=== PATIENT | male | born 1955 | race Caucasian/White ===

== ENCOUNTER 2017-05-23 17:17 | Emergency (ER) | payer BC, OTHER ==
[2017-05-23] MEDS ORDERED: HYDROcodone/Acetaminophen 10/325 mg Tablet ONE (18:08)
[2017-05-23] MEDS ORDERED: Lidocaine 1% w/Epinephrine 1:200K 30 ML VIAL ONE (18:08)
[2017-05-23] MEDS ORDERED: Bacitracin Zinc 1 Packet ONE (19:31)
== END 2017-05-23 19:35 | disposition home or self-care (01) ==
LOC: ERS 17:17
DX: S01.511A Laceration without foreign body of lip, initial encounter (principal); K21.9 Gastro-esophageal reflux disease without esophagitis; I10 Essential (primary) hypertension; Z79.899 Other long term (current) drug therapy; W55.22XA Struck by cow, initial encounter
CPT/HCPCS: 12031

== ENCOUNTER 2017-12-15 17:31 | Observation (INO) | payer OTHER ==
[2017-12-15 18:01] LABS: #Eosinphils 0.1 thou/uL (0.0-0.7); #Lymphocytes 1.8 thou/uL (1.20-3.40); #Monocytes 0.9 thou/uL (0.11-0.59); #Neutrophils 9.3 thou/uL (1.40-6.50); %Basophils 0.1 % (0.0-1.0); %Eosinophils 0.6 % (0.0-10.0); %Lymphocytes 14.6 % (21.0-51.0); %Monocytes 7.1 % (0.0-10.0); %Neutrophils 77.6 % (42.0-75.0); Hemoglobin 14.5 g/dL (14.0-18.0); Mean Corpuscular Hemoglobin 29.9 pg (27.0-31.0); Mean Corpuscular Volume 87.8 fl (80.0-94.0); Mean Platelet Volume 7.9 fL (7.4-10.4); Platelet Count 193 thou/uL (130-400); RBC Distribution Width 12.4 % (11.5-14.5); Red Blood Cell (RBC) Count 4.85 mill/uL (4.70-6.10)
[2017-12-15 18:05] LABS: Bilirubin Negative (Negative); Blood, Urine Trace (Negative); Clarity CLEAR (Clear); Glucose, Urine (Dipstick) Negative (Negative); Leukocyte Negative (Negative); Nitrite Negative (Negative); Protein, Urine (Dipstick) Negative (Neg-Trace); Specific Gravity, Urine 1.009 (1.002-1.036)
[2017-12-15 18:06] LABS: Bacteria/HPF None Seen HPF (None Seen); Hyaline Casts/LPF 0-3 HYALINE CAST LPF (0-3 Hyaline); RBC/HPF 0-3 HPF (0-3); Squamous Epithelial None Seen HPF (0-3); WBC/HPF None Seen HPF (0-3)
[2017-12-15 18:25] LABS: ALT (SGPT) 24 U/L (8-55); AST (SGOT) 19 U/L (5-34); Albumin 4.5 g/dL (3.4-4.8); Alkaline Phosphatase 84 U/L (40-150); Bilirubin, Direct 0.5 mg/dL (0.1-0.3); Bilirubin, Total 1.2 mg/dL (0.2-1.2); Lipase 19 U/L (8-78); Protein, Total 7.7 g/dL (5.8-8.1)
[2017-12-15 18:27] LABS: CKMB 1.8 ng/mL (0-6.6); Troponin I Less than 0.010 ng/mL (< 0.028)
--- NOTE | 2017-12-15 19:08 | ULT ---
GALLBLADDER ULTRASOUND: 12/15/17 HISTORY: Right upper quadrant pain. COMPARISON: None. TECHNIQUE: Utilizing multihertz transducer, sonographic imaging of the right upper quadrant is performed in the longitudinal and transverse plain. FINDINGS: Increased echogenicity of the liver may be due to hepatic steatosis or hepatocellular disease. Subseq uent evaluation for hepatic masses and intrahepatic biliary dilatation is limited. Right hepatic lobe measures 15.8 cm. The pancreas is obscured by bowel gas. Main portal vein is patent. Appropriate directional flow. Suboptimal evaluation of the common bile duct. No sonographic evidence of cholelithiasis, gallbladder wall thickening, or pericholecystic fluid. How ever, heavy threader reports a positive Delgado's sign. RIGHT KIDNEY: There is renal cortical thinning. No hydronephrosis. Right kidney measures 6.7 x 11.1 x 6.6 cm. IMPRESSION: 1. No definite sonographic evidence of cholelithiasis or cholecystitis. However, heavy threader pickett s report a positive Delgado's sign. HIDA scan is recommended. 2. Increased echogenicity of the liver is defined above. 3. Right renal cortical thinning. POS: [facility]
[2017-12-15] MEDS ORDERED: Morphine 4 MG/ML VIAL ONE ×2 (20:00→20:52)
[2017-12-15] MEDS ORDERED: Sodium Chloride 0.9% 1,000 ML IV SCH (22:36)
[2017-12-15] MEDS ORDERED: HYDROcodone/Acetaminophen 5/325 mg Tablet PO PRN ×2 (22:37)
[2017-12-15 23:35] VITALS: BMI 34.8
[2017-12-16] MEDS ORDERED: Ketorolac Tromethamine 30 MG/ML VIAL IVP PRN (00:34)
[2017-12-16] MEDS ORDERED: Morphine 4 MG/ML VIAL SLOW IVP SCH (00:45)
[2017-12-16] MEDS ORDERED: Acetaminophen 325 MG TAB PO PRN (05:00)
[2017-12-16] MEDS ORDERED: HYDROcodone/Acetaminophen 5/325 mg Tablet PO PRN ×4 (05:00)
[2017-12-16] MEDS ORDERED: Ondansetron ODT 4 MG TAB PO PRN (05:00)
[2017-12-16] MEDS ORDERED: hydrALAZINE 20 MG/ML VIAL SLOW IVP PRN (05:00)
[2017-12-16] MEDS ORDERED: Mag-Al 1200 mg/1200 mg/30 ML UDCUP PO PRN (05:00)
[2017-12-16] MEDS ORDERED: Ondansetron HCl/PF 4 MG/2 ML Vial IVP PRN (05:00)
[2017-12-16] MEDS ORDERED: Enalaprilat Dihydrate 1.25 MG/ML VIAL SLOW IVP PRN (05:02)
[2017-12-16] MEDS ORDERED: Sodium Chloride 0.9% 1,000 ML IV SCH (05:15)
--- NOTE | 2017-12-16 05:19 | HP ---
PRIMARY CARE PHYSICIAN: Dr. Jose Antonio Moseley. CHIEF COMPLAINT: Abdominal pain. HISTORY OF PRESENT ILLNESS: Mr. Garcia is a pleasant 62-year-old gentleman that has a history of hy pertension and gastroesophageal reflux disease. He was in his usual state of health until about 3 da ys prior to admission. 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 He says that the pain was constant and c ontinuous, and he describes it as a dull pain. He cannot relate it to any particular activity as far as making it better or worse. He says it does not seem to be different with activity. It does not seem to be different with eating. He denies having any nausea or vomiting. No diarrhea. He does ad carlos alberto to some low-grade temperature and as a result of the pain, he came to the ER for evaluation. An abdominal ultrasound was done in the ER, which was essentially negative for cholelithiasis; however, there was a positive Delgado sign and he was placed in observation to rule out acalculous cholecystiti s. I also asked the patient with regard to urinary symptoms. He denies any hematuria, no dysuria, a nd no discoloration of the urine such as tea-colored urine or blood in the urine, etc. REVIEW OF SYSTEMS: Constitutional: He has had subjective fever and chills in the last few days. No night sweats, no weight loss. HEENT: He denies any headaches, no dizziness, no visual changes, no sore throat, rhinorrhea, neck pain, no adenopathy. Pulmonary: No hemoptysis, no cough, no wheezing. Cardiovascular: He denies any chest pain, no shortness of breath, no PND, no orthopnea. Gastroint estinal: As stated in the history of present illness. Genitourinary: No urinary frequency, hematur ia, no hesitancy. Musculoskeletal: No muscle pains, weakness, or joint pains. Neurologic: No foca l weakness, numbness, no seizures. Psychiatric: No symptoms of anxiety or depression. Skin and Int egument: No skin changes. No rash. PAST MEDICAL HISTORY: Significant for hypertension and gastroesophageal reflux disease. PAST SURGICAL HISTORY: He has had LASIK surgery, sinus surgery, appendectomy, and cataracts surgery. SOCIAL HISTORY: He is a nonsmoker. He drinks a beer every now and then. He says he is , has 3 children. ALLERGIES: No known drug allergies. FAMILY HISTORY: Significant for congestive heart failure in his father. Mother had diabetes. MEDICATIONS: Include Flomax 0.4 mg daily, Flonase nasal spray, Zyrtec 10 mg daily, aspirin 81 mg a d ay, Protonix 40 mg every other day, and lisinopril 10 mg daily. PHYSICAL EXAMINATION: GENERAL: He is alert and oriented. He appears to be in no acute distress. VITAL SIGNS: Blood pressure was 111/67, heart rate 74, respiratory rate is 16, temperature is 97.9. HEENT: Pupils are equal, round, and reactive. Extraocular muscles are intact. His sclerae anicteri c. Throat, no erythema, no exudates. NECK: No adenopathy, no bruits. LUNGS: Clear to auscultation. There is no wheezing or rales. CARDIOVASCULAR: He has a normal S1, S2. There is no S3 or S4. No murmurs, clicks, or rubs. ABDOMEN: Obese, it is soft. There is some mild right upper quadrant tenderness. There is no reboun d or guarding, no organomegaly. EXTREMITIES: No clubbing, cyanosis, no edema. NEUROLOGICALLY: Exam is nonfocal. Muscle strength is 5/5 in both his upper and lower extremities. SIGNIFICANT LABORATORY DATA: Urinalysis, there was trace blood. His white blood cell count was 12.0 , hemoglobin 14.5, hematocrit is 42.6, platelet count is 193. Lipase was 19. ASSESSMENT AND PLAN: This is a 62-year-old gentleman that presents with abdominal and flank pain on the right side. Acalculous cholecystitis is in the differential, as he does have an elevated white b lood cell count and the location of the pain would fit. Also, he could have a kidney stone, which wo uld cause similar symptoms or even a muscle strain or radiculopathy in that area as well. He will be placed in observation. We will obtain a HIDA scan and also a KUB in the event that a radiopaque sto ne is present. Place him on IV fluids as well as antiemetics and pain medication and reevaluate him after the results of the HIDA scan are available. Hypertension since he will be n.p.o., we will place him on p.r.n. Vasotec and/or hydralazine until wh ich time his regular medications can be restarted.
[2017-12-16 08:37] VITALS: BP 110/70; TEMP 97.4
[2017-12-16] MEDS ORDERED: Enoxaparin Sodium 40 MG/0.4 ML SYRINGE SC SCH (09:00)
--- NOTE | 2017-12-16 13:20 | NM ---
NUCLEAR MEDICINE HEPATOBILIARY SCAN: 12/16/2017 PROVIDED CLINICAL HISTORY: Right upper quadrant pain. RADIOPHARMACEUTICAL: Technetium 99m labeled mebrofenin 5.1 millicuries IV. FINDINGS: There is normal hepatic extraction of radiotracer with accumulation of radiotracer seen within the ga llbladder in a normal amount of time. There is nonspecific delayed opacification of bowel. Subseque nt to the administration of CCK analog, there is diminished excretion of radiotracer from the gallbla dder. Calculated gallbladder ejection fraction is 31%. IMPRESSION: 1. No evidence for cystic duct or complete common duct obstruction. 2. Nonspecific delayed biliary to bowel transit. 3. Diminished gallbladder ejection fraction. Correlate for biliary dyskinetic syndrome. POS: OFF
--- NOTE | 2017-12-16 13:27 | RAD ---
KUB: 12/16/2017 PROVIDED CLINICAL HISTORY: Right flank pain. FINDINGS: The abdominal bowel gas pattern is nonspecific. There is contrast material present within the colon. No radiographically apparent urinary tract calculi. Phleboliths or prostate calcifications overly the pelvis. The osseous structures demonstrate no concerning lytic or blastic lesions. IMPRESSION: Nonspecific bowel gas pattern. POS: OFF
[2017-12-16] MEDS ORDERED: Fioricet 325/50/40 mg Tablet PO PRN (14:28)
[2017-12-16 14:55] LABS: ALT (SGPT) 20 U/L (8-55); AST (SGOT) 16 U/L (5-34); Albumin 3.9 g/dL (3.4-4.8); Alkaline Phosphatase 69 U/L (40-150); Anion Gap 9 mmol/L (10-20); BUN (Urea Nitrogen) 12 mg/dL (8.4-25.7); Calc. Creatinine Clearance 143 mL/min (70-130); Calcium 9.3 mg/dL (7.8-10.44); Carbon Dioxide 29 mmol/L (23-31); Chloride 105 mmol/L (98-107); Estimated GFR-MDRD Greater than 90; Glucose 103 mg/dL (80-115); Potassium 3.8 mmol/L (3.5-5.1); Protein, Total 6.9 g/dL (5.8-8.1); Sodium 139 mmol/L (136-145)
[2017-12-16 15:06] LABS: Band 3 % (5-11); Hemoglobin 13.3 g/dL (14.0-18.0); Lymphocytes 11 % (21-51); MDiff Complete? YES; Mean Corpuscular HGB CONC 33.8 g/dL (32.0-36.0); Mean Corpuscular Hemoglobin 30.3 pg (27.0-31.0); Mean Corpuscular Volume 89.6 fl (80.0-94.0); Monocytes 6 % (0-10); Neutrophil 80 % (42-75); PLT Morphology Comment Appears Adequate; Platelet Count 171 thou/uL (130-400); RBC Distribution Width 12.3 % (11.5-14.5); Red Blood Cell (RBC) Count 4.38 mill/uL (4.70-6.10); White Blood Cell (WBC) Count 6.8 thou/uL (4.8-10.8)
--- NOTE | 2017-12-16 22:06 | DIS ---
DATE OF ADMISSION: 12/16/2017 DATE OF DISCHARGE: 12/16/2017 DISCHARGE DIAGNOSES: 1. Right upper quadrant pain. 2. Headaches. 3. History of benign prostatic hypertrophy. HOSPITAL COURSE: The patient is a really nice 62-year-old male, who presents to the hospital with co mplaints of abdominal and flank pain on the right side. The patient initially underwent a right uppe r quadrant ultrasound, which did not indicate any cholelithiasis or cholecystitis. The patient then underwent a HIDA scan, which indicated no evidence of cystic duct or complete common duct obstruction , nonspecific delay in the biliary or bowel transit, demonstrated gallbladder ejection fraction of 31 %, henceforth a normal HIDA scan. The patient also had an abdominal x-ray for possible any renal francesco culi; however, no evidence of apparent urinary tract calculi was noted. The patient's right upper qu adrant pain has continued to improve. We will discharge the patient home. Follow up with PCP as an outpatient. Also, his lipase was normal and LFTs were normal. The patient will be fed a regular t and will be discharged home. Follow up with primary care. PHYSICAL EXAMINATION: VITAL SIGNS: Temperature 98.6, pulse 80, respiratory rate 20, blood pressure 111/67, and O2 saturati on 96% on room air. GENERAL: He is awake, alert, oriented x3, does not appear in distress. CARDIOVASCULAR: S1, S2 present. No murmurs, rubs or gallops. ABDOMEN: Soft, nontender. Bowel sounds are present x2. No epigastric pain. No hepatomegaly or spl enomegaly noted. EXTREMITIES: No edema.
== END 2017-12-16 15:53 | disposition home or self-care (01) ==
LOC: ERS 17:31 → 2SW 21:30
PROVIDERS: ADMIT Internal Medicine; ATTEND Internal Medicine
DX: R10.11 Right upper quadrant pain (principal); R51 Headache; N40.0 Benign prostatic hyperplasia without lower urinary tract symptoms; I10 Essential (primary) hypertension; K21.9 Gastro-esophageal reflux disease without esophagitis; Z79.82 Long term (current) use of aspirin; Z79.899 Other long term (current) drug therapy; Z98.890 Other specified postprocedural states
CPT/HCPCS: 36415; 74018; 76705; 78227; 80053; 80076; 81003; 81015; 82553; 83690; 84484; 85007; 85025; 85027; 96361; 96374; 96376; A9537; G0378; J2270

== ENCOUNTER 2018-07-30 09:46 | Outpatient (CLI) | payer OTHER ==
[2018-07-30 11:15] LABS: #Eosinphils 0.2 thou/uL (0.0-0.7); #Lymphocytes 2.1 thou/uL (1.20-3.40); #Monocytes 0.5 thou/uL (0.11-0.59); #Neutrophils 2.9 thou/uL (1.40-6.50); %Basophils 0.8 % (0.0-1.0); %Eosinophils 4.3 % (0.0-10.0); %Lymphocytes 35.8 % (21.0-51.0); %Monocytes 7.9 % (0.0-10.0); %Neutrophils 51.1 % (42.0-75.0); Hemoglobin 14.9 g/dL (14.0-18.0); Mean Corpuscular HGB CONC 34.2 g/dL (32.0-36.0); Mean Corpuscular Hemoglobin 30.4 pg (27.0-31.0); Mean Platelet Volume 8.5 fL (7.4-10.4); Platelet Count 204 thou/uL (130-400); White Blood Cell (WBC) Count 5.7 thou/uL (4.8-10.8)
[2018-07-30 11:35] LABS: ALT (SGPT) 45 U/L (8-55); AST (SGOT) 27 U/L (5-34); Albumin 4.1 g/dL (3.4-4.8); Alkaline Phosphatase 77 U/L (40-150); Anion Gap 10 mmol/L (10-20); BUN (Urea Nitrogen) 14 mg/dL (8.4-25.7); Bilirubin, Direct 0.4 mg/dL (0.1-0.3); Calc. Creatinine Clearance 0 mL/min (70-130); Calcium 9.5 mg/dL (7.8-10.44); Carbon Dioxide 27 mmol/L (23-31); Chloride 109 mmol/L (98-107); Estimated GFR-MDRD 86; Glucose 91 mg/dL (80-115); Potassium 4.4 mmol/L (3.5-5.1); Protein, Total 7.1 g/dL (5.8-8.1); Sodium 142 mmol/L (136-145)
--- NOTE | 2018-07-30 19:04 | EKG ---
Test Reason : Blood Pressure : / mmHG Vent. Rate : 055 BPM Atrial Rate : 055 BPM P-R Int : 158 ms QRS Dur : 136 ms QT Int : 428 ms P-R-T Axes : 025 059 032 degrees QTc Int : 409 ms Sinus bradycardia Right bundle branch block Abnormal ECG Confirmed by Ayla ARREAGA ([id number]) on 07/30/2018 7:03:42 PM Referred By: PRATIK Confirmed By:Ayla ARREAGA
== END 2018-07-30 09:47 | disposition home or self-care (01) ==
LOC: LABBT 09:46
PROVIDERS: ATTEND Surgery
DX: Z01.818 Encounter for other preprocedural examination (principal); K82.8 Other specified diseases of gallbladder
CPT/HCPCS: 80048; 80076; 85025; 93005; 93010

== ENCOUNTER 2018-08-02 11:49 | Day surgery (SDC) | payer OTHER ==
[2018-07-30 10:19] VITALS: BMI 36.1
[2018-08-02] MEDS ORDERED: CEFAZOLIN 2 GM/50 ML BAG ONE (12:07)
[2018-08-02] MEDS ORDERED: Midazolam HCl 2 mg/2 ml Vial ONE (13:03)
[2018-08-02] MEDS ORDERED: Fentanyl 100 MCG/2 ML VIAL ONE ×3 (13:03→15:22)
[2018-08-02] MEDS ORDERED: Rocuronium Bromide 50 MG/5 ML VIAL ONE (13:09)
[2018-08-02] MEDS ORDERED: Bupivacaine/Epinephrine 0.25% 30 ML VIAL ONE (14:34)
--- NOTE | 2018-08-02 16:32 | OP ---
DATE OF PROCEDURE: 08/02/2018 PREOPERATIVE DIAGNOSIS: Chronic biliary dyskinesia. POSTOPERATIVE DIAGNOSIS: Chronic biliary dyskinesia. PROCEDURE: Laparoscopic cholecystectomy. ANESTHESIA: General. ESTIMATED BLOOD LOSS: Minimal. COMPLICATIONS: None. SPECIMEN: Gallbladder. FINDINGS: Chronic cholecystitis. TECHNIQUE: The patient was taken to the operating room and laid supine on the operating room table. After general anesthetic was obtained, the abdomen was prepped and draped in a sterile fashion. A curved incision was made below the umbilicus. Cautery was used to dissect down to the umbilical fascia. Umbilical fascia was incised and held up using a Zuleyka. The abdominal cavity was entered using a Zenaida clamp. Holding stitch of Vicryl was placed on each side of the fascia. Villeda trocar was placed. High-flow pneumoperitoneum was obtained. An upper midline 5 mm port and 2 right upper quadrant 5 mm ports were placed under direct camera visualization. The gallbladder was retracted from the gallbladder fossa. The peritoneum of the gallbladder was opened anteriorly and posteriorly. The critical view triangle was seen showing only the cystic duct and cystic artery branching from medial to lateral. There were no other branching structures. Two clips were placed proximally on the cystic duct and one laterally. It was cut using laparoscopic scissors. The cystic artery was taken in the same way. Electrocautery was then used to dissect the gallbladder out of the gallbladder fossa. The gallbladder was placed in an Endo catch bag and brought out through the Villeda. There was no bleeding or bile in the liver bed. The cystic duct stump and cystic artery stump were intact, without evidence of extravasation or bleeding. All port sites were infiltrated using local anesthesia. All ports were removed under camera visualization. Pneumoperitoneum was let down. The Vicryl was used to close the fascial defect below the umbilicus. All incisions were irrigated and closed using 4-0 Monocryl and Dermabond. The patient was en route to Recovery in stable condition. All instrument counts, needle counts and lap counts were correct. Job ID: [id number]
[2018-08-02] MEDS ORDERED: HYDROcodone/Acetaminophen 5/325 mg Tablet ONE (17:14)
== END 2018-08-02 17:45 | disposition home or self-care (01) ==
LOC: SDC 11:49
PROVIDERS: ATTEND Surgery
PROC: 0FT44ZZ Resection of Gallbladder, Percutaneous Endoscopic Approach (ICD-10-PCS; principal; 2018-08-02)
DX: K81.1 Chronic cholecystitis (principal); K82.8 Other specified diseases of gallbladder
CPT/HCPCS: 88304; 96374; J2250; J3010

== ENCOUNTER 2019-01-14 03:21 | Inpatient (IN) | payer OTHER ==
[2019-01-14 03:52] LABS: #Eosinphils 0.2 thou/uL (0.0-0.7); #Lymphocytes 1.7 thou/uL (1.20-3.40); #Monocytes 0.6 thou/uL (0.11-0.59); #Neutrophils 5.1 thou/uL (1.40-6.50); %Basophils 0.4 % (0.0-1.0); %Lymphocytes 21.9 % (21.0-51.0); %Monocytes 7.9 % (0.0-10.0); %Neutrophils 66.8 % (42.0-75.0); Hemoglobin 13.3 g/dL (14.0-18.0); Mean Corpuscular HGB CONC 33.1 g/dL (32.0-36.0); Mean Corpuscular Hemoglobin 29.7 pg (27.0-31.0); Mean Corpuscular Volume 89.8 fL (78.0-98.0); Mean Platelet Volume 8.4 fL (7.4-10.4); Platelet Count 160 thou/uL (130-400); RBC Distribution Width 12.2 % (11.5-14.5); Red Blood Cell (RBC) Count 4.47 mill/uL (4.70-6.10); White Blood Cell (WBC) Count 7.7 thou/uL (4.8-10.8)
[2019-01-14 03:59] LABS: INR-International Normal Ratio 1.1; PTT 28.8 SEC (22.9-36.1); Prothrombin Time 13.8 SEC (12.0-14.7)
[2019-01-14 04:19] LABS: ALT (SGPT) 30 U/L (8-55); AST (SGOT) 20 U/L (5-34); Albumin 3.5 g/dL (3.4-4.8); Alkaline Phosphatase 73 U/L (40-150); Anion Gap 10 mmol/L (10-20); BUN (Urea Nitrogen) 13 mg/dL (8.4-25.7); Bilirubin, Total 0.8 mg/dL (0.2-1.2); CK (CPK) 115 U/L (30-200); Calc. Creatinine Clearance 0 mL/min (70-130); Calcium 8.5 mg/dL (7.8-10.44); Carbon Dioxide 22 mmol/L (23-31); Chloride 108 mmol/L (98-107); Estimated GFR-MDRD 83; Globulin 2.2 g/dL (2.4-3.5); Glucose 97 mg/dL (80-115); Protein, Total 5.7 g/dL (5.8-8.1); Sodium 136 mmol/L (136-145)
[2019-01-14 05:28] VITALS: BMI 34.6
[2019-01-14] MEDS ORDERED: Communication Order-Pharmacy FS ONE (05:44)
[2019-01-14] MEDS ORDERED: Ondansetron PF 4 MG/2 ML Vial IVP PRN (05:44)
[2019-01-14] MEDS ORDERED: Labetalol HCl 100 MG/20 ML VIAL SLOW IVP PRN (05:44)
[2019-01-14] MEDS ORDERED: Ondansetron ODT 4 MG TAB PO PRN (05:44)
[2019-01-14] MEDS ORDERED: Acetaminophen 650 MG Suppository PR PRN (05:44)
--- NOTE | 2019-01-14 08:16 | HP ---
PRIMARY CARE DOCTOR: Selena Ferro MD CODE STATUS: Full code. TIME OF EVALUATION: 5:40 a.m. CHIEF COMPLAINT: Unable to speak and right-sided weakness. HISTORY OF PRESENT ILLNESS: This is a 63-year-old male patient with past medical history of GERD, hypertension, came to the hospital. 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 The patient was transported to the hospital and when he got here, he was diagnosed to have CVA that was acute. The symptoms were severe given the fact that the patient was unable to speak and he was given tPA. The patient has recovered. He has been able to speak in . The right upper arm was regaining strength, symptoms were severe. No clear triggers. The only thing that improved the symptoms was tPA. REVIEW OF SYSTEMS: Unable to fully get the informations since the patient is hypoxic, but the family has reported that the patient has not had any major symptoms in the past few days before the stroke. He has no fever, chills, or cough. No sputum production. No nausea, no vomiting, no diarrhea. 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 PAST MEDICAL HISTORY: As mentioned in the HPI. PAST SURGICAL HISTORY: Bilateral shoulder surgery, appendectomy. PSYCHIATRIC HISTORY: No previous psych history. SOCIAL HISTORY: The patient drinks socially twice a month. No drugs. No smoking history. FAMILY HISTORY: Positive for mother with diabetes and the father with congestive heart failure. ALLERGIES: NO KNOWN DRUG ALLERGIES. REPORTED MEDICATIONS: 1. Zyrtec. 2. Aspirin. 3. Pantoprazole. 4. Atorvastatin. 5. Tamsulosin. 6. Metoprolol. 7. Fluticasone. PHYSICAL EXAMINATION: VITAL SIGNS: On presentation, blood pressure 130/102 with heart rate 56, respiratory rate 16, oxygen saturation 97%. GENERAL APPEARANCE: The patient is alert, oriented, in no acute distress. HEENT: Eyes, normal conjunctivae. Moist oral mucosa. Anicteric. No JVD. RESPIRATORY: Bilateral air entry. No rales. No wheezes. Symmetric expansion. CARDIOVASCULAR: Normal rate, regular rhythm. No murmurs. No gallop. No edema. ABDOMEN: Soft. Normal bowel sounds. MUSCULOSKELETAL: Baseline range of motion and strength. No tenderness. SKIN: Warm and intact. No pallor. No rash. No redness. Peripheral pulses are present. Capillary refill seems to be intact. NEUROLOGIC: The patient has aphasia that has resolved after tPA as per family members. He is able to speak slowly, able to read, name objects. The right upper extremity is still weak; however, stronger as reported by family members. He was unable to move the right upper extremity. PSYCH: The patient is in good mood. No anxiety. Optimal judgment. DIAGNOSTIC STUDIES: EKG was reviewed. The patient has normal sinus rhythm with right bundle-branch block, ventricular rate 66, IL 164, QRS duration 132, QT corrected 448. Radiology report was reviewed. CT head without contrast showed no evidence of acute large vessel infarction or hemorrhage. CT angio with contrast showed no acute finding. No significant ICA stenosis, dissection, or occlusion. LABORATORY DATA: Labs were reviewed. The patient has white count of 7.7, hemoglobin 13.3, MCV 89.8, platelet count 160. PT 13.8 with INR 1.1, PTT 28.8. Chemistry, sodium 136, potassium 4.0, chloride 108, carbon dioxide 22, anion gap 10, BUN 13, creatinine 0.92, and GFR 83. LFTs were negative. Troponin was negative. Serum total protein 5.7, albumin 3.5, globulin 3.2, albumin-globulin ratio 1.6. ASSESSMENT AND PLAN: The patient will be placed in the hospital with the following medical problems. 1. Acute stroke, ischemic, status post cerebrovascular accident. The patient has recovered from symptoms. He presented with aphasia and right upper extremity weakness, we will continue to monitor as per protocol for the next 24 hours. We will do stroke protocol with MRI, echo, carotid Doppler, monitor blood pressure. We will need speech evaluation and therapy. 2. Controlled hypertension. The patient is on protocol. We will control the blood pressure per target per the protocol. 3. Deep venous thrombosis prophylaxis. He received tPA. Continue with the SCDs. ICU time spent, more than 35 minutes with the patient in bedside evaluation, family counseling, review of records. Job ID: [id number]
--- NOTE | 2019-01-14 08:50 | CT ---
Final report by Dr. Mauricio Emergency after-hours study CT ANGIOGRAM OF BRAIN WITH CONTRAST: CT ANGIOGRAM NECK WITH CONTRAST: DATE: 01/14/2019 HISTORY: 63-year-old male status post stroke TECHNIQUE: After IV contrast injection, arterial bolus chasing technique scan performed from aortopulmonic windo w to vertex of skull Coronal and sagittal 3-D MIP reconstructions. FINDINGS: No calcified plaque, and no high-grade stenosis, in major arteries of neck and intracranially. Agree with preliminary report by [facility]. IMPRESSION: Negative
--- NOTE | 2019-01-14 09:17 | CT ---
PRELIMINARY REPORT/[facility]/EMERGENCY AFTER HOURS PROCEDURE: Addendum created by Iam Naylor MD on 01/14/2019 3:34 AM Central Time ([place]) THIS REPORT CONTAINS FINDINGS THAT MAY BE CRITICAL TO PATIENT CARE. The findings were verbally communicated via t elephone conference with ISSAC Matthews at 3:34 AM CDT on 01/14/2019. The findings were acknowledg ed and understood. Initial Report created on 01/14/2019 3:33 AM Central Time ([place]) EXAM: CT Head Without Contrast EXAM DATE/TIME: 01/14/2019 3:25 AM CLINICAL HISTORY: 63 years old, male; Signs and symptoms; Speech disturbance; Patient HX: Lsn: 0145, unable to speak, d ecreased movement to all 4 limbs. Found walking up and down a hallway at work. Weakness in upper limb s at this time. Drooping on right side. Alert and oriented, just unable to speak. Denies pain. TECHNIQUE: Imaging protocol: Axial computed tomography images of the head without contrast. Other technique: STR GAYLE PROTOCOL was implemented. COMPARISON: No relevant prior studies available. FINDINGS: Limitations: Motion artifact limits this study. Brain: No evidence of acute large vessel infarction. No evidence of acute intracranial hemorrhage, ex traxial fluid or midline shift. Mild prominence of the cerebral sulci and ventricles. Cerebellum atro phic; otherwise, posterior fossa structures within normal limits. Ventricles: Normal. No ventriculomegaly. Bones/joints: Unremarkable. No acute fracture. Sinuses: Visualized sinuses are unremarkable. No fluid levels. Mastoid air cells: Visualized mastoid air cells are well aerated. No mastoid effusion. Soft tissues: Unremarkable. IMPRESSION: 1. Motion artifact limits this study. 2. No evidence of acute large vessel infarction. 3. No evidence of acute intracranial hemorrhage, extraxial fluid or midline shift. 4. Mild cerebral atrophy. ASSESSMENT: ASPECTS ([place] Stroke Program Early CT Score) is 10. Thank you for allowing us to participate in the care of your patient. Dictated and Authenticated by: Iam Naylor MD 01/14/2019 3:33 AM Central Time ([place]) FINAL REPORT CT HEAD NONCONTRAST: Date: 01/14/19 IMPRESSION: I agree with the above provided preliminary interpretation from [facility]. No acute intracranial hemorrhag e or mass effect. POS: [facility]
--- NOTE | 2019-01-14 10:00 | PDOC.PULCN ---
Pulmonology Consult: HPI - Date of Consult Date: 01/14/19 Time: 09:45 - Consult Details Reason for Consult: Critical Care Managment, Post tPa monitoring - History of Present Illness HPI: DWAYNE HARRY is a 63 year-old M who came in after co-workers noticing him acting confused and having garbeled speech. Also at the time he was having right sided weakness. Pt was thought to be having stroke. CT head was negative. Pt was w/n tPa window. Pt recieved tPa at 3:30 this morning. He is now here for acute CVA and post tPa monitoring. Pt denies any chest pain or SOB at this onset. Pt denied any dizziness. Pt reported some blurry vision at onset of symptoms. Reports vision has improved. Pt denies any weakness at this time. Pt denies any numbness or tingling. Pt reports symptoms much improved from earlier. Pulmonology Consult: ROS - Review of Systems All systems: reviewed and no additional remarkable complaints except as stated Constitutional: negative: fever, chills, weakness Cardiovascular: negative: chest pain, palpitations, edema, light headedness Respiratory: negative: no reported symptoms, congestion, cough, short of breath Pulmonology Consult: PMH Source: patient Past Medical History: GERD, HTN, PSHx: Bilateral Shoulder Surgery, Appendectomy - Family History Pertinent family history: Mother: Diabetes Father: CHF - Social History Smoking Status: Never smoker Alcohol Use: occasional Drug Use History: none Living Situation: independent Pulmonology Consult: Meds - Medications MAR Reviewed: Yes Medications: Current Medications Acetaminophen (Tylenol) 650 mg PO Q4H PRN PRN Reason: Headache/Fever/Mild Pain (1-3) Acetaminophen (Tylenol) 650 mg NH Q4H PRN PRN Reason: Headache/Fever/Mild Pain (1-3) Nicardipine HCl 25 mg/ Sodium (Chloride) 260 mls @ 0 mls/hr IVPB INF PRN; Protocol PRN Reason: SBP > 180 or DBP > 105 Labetalol HCl (Normodyne) 10 mg SLOW IVP Q2H PRN PRN Reason: SBP > 180 or DBP > 105 Ondansetron HCl (Zofran Odt) 4 mg PO Q6H PRN PRN Reason: Nausea/Vomiting Ondansetron HCl (Zofran) 4 mg IVP Q6H PRN PRN Reason: Nausea/Vomiting - Allergies Allergies/Adverse Reactions: Allergies Allergy/AdvReac Type Severity Reaction Status Date / Time No Known Drug Allergies Allergy Verified 01/14/19 05:22 Pulmonology Consult: PE - Physical Exam Constitutional: NAD HEENT: PERRLA, moist MMs Neck: no nodes, no JVD, supple, full ROM -: No bruits noted Cardiovascular: RRR, no significant murmur, no rub Respiratory: clear to auscultation anteriorly, clear to auscultation bilaterally Gastrointestinal: soft, non-tender, no distention, positive bowel sounds Musculoskeletal: no edema, pulses present Neurological: normal sensation, moves all 4 limbs Deviation from normal: Pt has some left sided facial droop. Strenght 5/5 in LE and UE. -: Finger to Nose test normal. CN 2-12 grossly normal except facial droop. 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 Time with Patient: greater than 70 minutes - Plan Plan: Pt is in CCU for post tPA administration monitoring. Pt reports significant improvement since coming in to ER. PT/OT/Speech consulted for further evaluation. Will want to maintain BP below 180/150. On prn BP medications. Will get MRI in 24 hrs post tPa. Will await ECHO and dopplers. Will continue statin medication. Will continue to monitor of any adverse effects of tPa until tomorrow morning in the unit. Addendum - Attending - Attending Attestation Date/Time: 01/14/19 [id number] I personally evaluated the patient and discussed the management with Dr. Arboleda. I agree with the History, Examination, Assessment and Plan documented above with any addition or exceptions noted below. 70 minutes have been devoted to this patient in various activities. I personally reviewed all imaging studies and laboratory data noted within this document. For fifty percent of this time, I was interacting with the patient at the bedside or coordinating care with the care team. For the remainder of the time I was immediately available to the patient in the hospital unit.
[2019-01-14] MEDS: Acetaminophen 325 MG TAB PO PRN (14:10)
[2019-01-14] MEDS ORDERED: ISOVUE-370 76%-LOCM 1 ML ONE (14:31)
--- NOTE | 2019-01-14 16:38 | CON ---
DATE OF TELEMEDICINE CONSULTATION: 01/14/2019 Registered nurse accompanying the MD is Teresa. HISTORY OF PRESENT ILLNESS: The patient is a 63-year-old man, who is working night shifts. 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 He went to work and his face was drying. He could not talk well. He felt different. He was walking into the office. He did not have any weakness of his muscles or numbness that he can recall. His co-worker recognized the symptoms of stroke and immediately called 911. He was brought to the ER within the time frame. He was aphasic prior to IV tPA administration. He had weakness of his right upper arm prior to tPA and post tPA, he had improvement of his speech and arm weakness per chart. The patient reports he is still having some difficulty in getting the words out this morning. Overall, he is feeling well. PREVIOUS MEDICAL HISTORY: Hypertension and gastroesophageal reflux disease. PREVIOUS SURGICAL HISTORY: Bilateral shoulder surgery several years ago and appendectomy at age 17. SOCIAL HISTORY: He drinks beer occasionally. He does not smoke. He works at the [email or web address]. FAMILY HISTORY: There is no family history of stroke. His father had congestive heart failure and mother had diabetes. ALLERGIES: NO KNOWN DRUG ALLERGIES. MEDICATIONS: At home; 1. Aspirin 81 mg per day. 2. Zyrtec. 3. Pantoprazole. 4. Atorvastatin. 5. Tamsulosin. 6. Metoprolol. 7. Fluticasone. REVIEW OF SYSTEMS: PULMONARY: Negative for shortness of breath. GASTROINTESTINAL: Negative for any nausea, vomiting, or stomach pains. GENITOURINARY: Negative for any bladder discomfort. NEUROLOGIC: Positive for slurred speech and weakness of the right arm, which have all resolved post tPA. PSYCHIATRIC: Negative for depression. DERMATOLOGIC: Negative for any skin rash. HEMATOLOGIC: Negative for bleeding diathesis or anemia. LABORATORY DATA: White count 7.7, hemoglobin 13.3, hematocrit 40.1, and platelet count 160. PT 13.8, INR 1.1, and PTT 28.8. Chemistry; sodium 136, potassium 4.0, chloride 108, bicarb 22, BUN 13, creatinine 0.92, and glucose 97. His CT angiography showed no stenosis in the major arteries of the neck and intracranially and CT head was negative for any abnormal findings. Echocardiogram was performed and he had EF was about 55% to 60%. PHYSICAL EXAMINATION: GENERAL APPEARANCE: Well-built, well-nourished gentleman, who appears comfortable. VITAL SIGNS: Blood pressure 126/83, pulse rate is 59, respiratory rate 18, and O2 saturations 97. CHEST: Clear vesicular breathing. CARDIOVASCULAR: S1 and S2 heard. No murmurs. ABDOMEN: Soft and nontender. NEUROLOGIC: Higher intellectual functions. Normal orientation to time, place, person, and appropriate conversation. Cranial nerves 2 through 12 normal. Pupils at 2 mm bilaterally. No abnormality of facial sensation. Normal extraocular movements. Tongue midline. No atrophy noted. Normal elevation of palate. Right facial droop. Hearing is normal and he did have very mild nystagmus in the left eye. Motor examination, bulk normal. Tone normal. Strength 5/5 in upper and lower extremities in iliopsoas, hamstrings, quadriceps, ankle dorsiflexion, plantar flexion, deltoid, biceps, triceps, wrist extension and flexion, finger extension and flexion bilaterally. Deep tendon reflexes are 2+ throughout. Sensory, normal touch bilaterally and cerebellar, normal [id number] and [id number]. IMPRESSION AND PLAN: The patient is a 63-year-old man with acute stroke symptoms with dysarthria and expressive aphasia along with right arm weakness, who presented to the ER within the time frame for IV tPA. He completed his IV tPA with resolution of his speech issue as well as weakness. At this time, he has mild right facial droop, very mild slight delay in expression of his thoughts with very mild aphasia and motor examination is normal. Clinical diagnosis is most consistent with an acute likely embolic cerebrovascular accident, although echocardiogram seems normal. We need to wait for MRI of the brain. I will follow up the patient tomorrow. Please add Plavix to the aspirin. If there is any cardiac dysrhythmia, consider anticoagulation. I will follow up the patient with you. Job ID: [id number] [facility]
--- NOTE | 2019-01-14 19:51 | PDOC.EVN ---
Event Note - Event Note Event Note: Pt seen and examined. Feels much better. speech has improved a lot.R sided weakness is gone chart reviewed s/p t-PA. cont to monitor. BP stable .NO ASA /labs for 24 hours post T-PA.was off of ASA for 10 days for some small OP procedure will need ASA +plavis + statin MRI,ECHO pending Neuro recs noted HD stable. Will follow
[2019-01-15] MEDS: Acetaminophen 325 MG TAB PO PRN ×2 (00:01→06:30)
[2019-01-15 05:59] LABS: #Eosinphils 0.2 thou/uL (0.0-0.7); #Lymphocytes 1.7 thou/uL (1.20-3.40); #Monocytes 0.5 thou/uL (0.11-0.59); #Neutrophils 3.5 thou/uL (1.40-6.50); %Basophils 0.4 % (0.0-1.0); %Eosinophils 4.2 % (0.0-10.0); %Lymphocytes 28.4 % (21.0-51.0); %Monocytes 8.1 % (0.0-10.0); %Neutrophils 58.9 % (42.0-75.0); Hemoglobin 13.7 g/dL (14.0-18.0); Mean Corpuscular HGB CONC 34.2 g/dL (32.0-36.0); Mean Corpuscular Hemoglobin 30.3 pg (27.0-31.0); Mean Corpuscular Volume 88.6 fL (78.0-98.0); Mean Platelet Volume 8.4 fL (7.4-10.4); Platelet Count 157 thou/uL (130-400); Red Blood Cell (RBC) Count 4.54 mill/uL (4.70-6.10); White Blood Cell (WBC) Count 5.9 thou/uL (4.8-10.8)
[2019-01-15 06:26] LABS: Anion Gap 12 mmol/L (10-20); BUN (Urea Nitrogen) 13 mg/dL (8.4-25.7); Calc. Creatinine Clearance 148 mL/min (70-130); Carbon Dioxide 22 mmol/L (23-31); Cardiac Risk 4.1 (Less than 4.5); Chloride 109 mmol/L (98-107); Cholesterol 116 mg/dl (< 200 Desired); Estimated GFR-MDRD Greater than 90; Glucose 99 mg/dL (80-115); HDL Cholesterol 28 mg/dL (>60 Neg Risk); LDL Cholesterol, Calculated 65 mg/dL; Potassium 3.8 mmol/L (3.5-5.1); Sodium 139 mmol/L (136-145); Triglycerides 113 mg/dL (Less than 150)
--- NOTE | 2019-01-15 08:30 | CT ---
EXAM: CT brain without contrast HISTORY: Status post TPA. Stroke. Evaluate for intracranial hemorrhage. COMPARISON: 01/14/2019 TECHNIQUE: Multiple contiguous axial images were obtained and a CT of the brain without contrast. FINDINGS: Hypodensity is seen in the left temporal lobe consistent with a small left MCA distribution infarction. There is no evidence of hydrocephalus, intracranial hemorrhage, or extra-axial fluid collection. The calvarium and overlying soft tissues are unremarkable. The visualized paranasal sinuses and masto id air cells are well aerated. IMPRESSION: No evidence of acute intracranial hemorrhage. Small left MCA distribution infarction.
[2019-01-15] MEDS ORDERED: Lorazepam 2 MG/ML VIAL SLOW IVP PRN (08:46)
--- NOTE | 2019-01-15 10:44 | MRI ---
EXAM: MRI of the brain without contrast HISTORY: aphasia and right arm weakness status post TPA. COMPARISON: CT brain 01/14/2019 TECHNIQUE: Multiplanar multisequence MR images were obtained of the brain without IV contrast. FINDINGS: There is a small area of restricted diffusion and high FLAIR signal in the left temporal lobe consist ent with the hypodense region seen on CT. This is consistent with an acute evolving infarction. No hydronephrosis. No extra-axial fluid collection or intracranial hemorrhage. The expected flow voids are present. Corpus callosum, pituitary, and craniocervical junction are within normal limits. The calvarium and overlying soft tissues are unremarkable. The mastoid air cells are well aerated. Mucosal thickening is seen in the paranasal sinuses. IMPRESSION: Evolving small left MCA distribution infarction.
--- NOTE | 2019-01-15 10:51 | PRG ---
DATE OF SERVICE: 01/15/2019 TELEMEDICINE CONSULTATION WITH RANCHO CERVANTES CHIEF COMPLAINT: Acute stroke. INTERVAL HISTORY: The patient is doing very well. We also spoke to the nurse, there was no evidence of any atrial fibrillation during this admission. At this time, his speech is back to baseline. Current workup, echocardiogram has noted he has left atrial dilatation and the EF of 55% to 60%, and his CT of the head today showed a small infarct in the left MCA distribution. CT angio was negative and reports were reviewed and he has also been seen by a social work professor during his ICU admission. PHYSICAL EXAMINATION: VITAL SIGNS: Temperature 97.6, pulse 55, respiratory rate 17, and blood pressure 141/84. GENERAL: Well-built, well-nourished man, who is oriented to time, place, and person. Appropriate conversation. NEUROLOGIC: Cranial nerves, normal extraocular movements. Tongue midline. There is slight facial asymmetry is noted on the right side of the face. Motor, bulk normal. Tone normal. Strength 5/5 in both upper and lower extremities bilaterally. IMPRESSION: The patient with small acute left MCA infarct is currently waiting on his MRI. I am unable to identify a cause for the embolic infarct. Then, there is no evidence of atrial fibrillation or abnormality on echocardiogram. He might have had paroxysmal atrial fibrillation at the time of event and that might have caused a stroke. This needs to be further investigated. RECOMMENDATIONS: Please continue current antiplatelet agent and statin for stroke prevention. He will need outpatient workup from the bag bailer. I will see the patient after the MRI scan is completed. Job ID: [id number] [facility]
--- NOTE | 2019-01-15 11:06 | PDOC.PN ---
- Subjective Encounter Start Date: 01/15/19 Encounter Start Time: 11:04 Patient seen and examined, no new issues or complaints, family at bedside. - Objective Resuscitation Status - Order Detail: 01/14/19 05:44 Resuscitation Status Routine Resuscitation Status: FULL: Full Resuscitation Vital Signs & Weight: Vital Signs (12 hours) Temp Pulse Resp BP Pulse Ox 01/15/19 06:45 97.6 F 55 L 17 141/84 H 96 Weight Weight 241 lb 6.499 oz Most Recent Monitor Data Heart Rate from ECG 50 NIBP 103/76 NIBP BP-Mean 85 Respiration from ECG 6 SpO2 96 I&O: 01/14/19 01/15/19 01/16/19 06:59 06:59 06:59 Intake Total 100 980 Output Total 450 1275 Balance -350 -295 Result Diagrams: 01/15/19 05:33 01/15/19 05:33 Phys Exam - Physical Examination Constitutional: NAD HEENT: PERRLA, moist MMs, sclera anicteric Neck: no nodes, no JVD, supple Respiratory: no wheezing, no rales, no rhonchi Cardiovascular: RRR, no significant murmur, no rub Gastrointestinal: soft, non-tender, no distention Dx/Plan (1) CVA (cerebral vascular accident) Code(s): I63.9 - CEREBRAL INFARCTION, UNSPECIFIED Status: Acute (2) GERD (gastroesophageal reflux disease) Code(s): K21.9 - GASTRO-ESOPHAGEAL REFLUX DISEASE WITHOUT ESOPHAGITIS Status: Acute (3) HTN (hypertension) Code(s): I10 - ESSENTIAL (PRIMARY) HYPERTENSION Status: Acute (4) tPA adm status 24 hr NON PROFIT DIRECTOR Code(s): Z92.82 - S/P ADMN TPA IN DIFF FAC W/N LAST 24 HR BEF ADM TO CRNT FAC Status: Acute - Plan * MRI pending * cont PT * possible DC plans in AM if no new issues and MRI normal * case and plan d/w patient at length, he understood and agreed with this plan
[2019-01-15] MEDS: Mupirocin 2% Ointment 22 GM Tube TOP SCH (12:14)
--- NOTE | 2019-01-15 15:48 | PRG ---
DATE OF SERVICE: 01/15/2019 INTERVAL HISTORY: The patient is doing really well from respiratory standpoint. He is breathing comfortably. He has no complaints of chest pain, fevers, cough, sputum production, nausea, or vomiting. He is otherwise returning to his usual state of health. His only deficit at this point is that he is having a hard time finding the right words frequently. OBJECTIVE: VITAL SIGNS: Afebrile, pulse 72, blood pressure 129/87, respirations 16, saturation 97% on room air. GENERAL: The patient is awake and alert, in no apparent distress lungs decent air entry. No prolonged expiratory phase or wheezing is appreciated. HEART: Normal rate regular. ABDOMEN: Soft, nontender, nondistended. Bowel sounds are positive. MUSCULOSKELETAL: No cyanosis or clubbing. No pitting in the bilateral lower extremities. NEUROLOGIC: Grossly nonfocal. DIAGNOSTIC DATA: 1. MRI of the brain demonstrates evolving small left MCA distribution infarction. 2. CT of the brain demonstrates no acute intracranial abnormality. 3. Echocardiogram shows normal ejection fraction. Left atrium moderately dilated. No significant valvular pathology is appreciated. ASSESSMENT: 1. CVA of the left middle cerebral artery, status post tPA. 2. Hypertension. 3. Gastroesophageal reflux disease. DISCUSSION PLAN: The patient is doing fine. He has no respiratory difficulties. His deficit is minimal. He will continue working with Physical Therapy. From a purely respiratory perspective, there is nothing prevents him from leaving the hospital. At this point, he has no further requirements for inpatient Pulmonary/Critical Care opinion, and I will sign off. Please call with additional questions or concerns. Job ID: [id number]
[2019-01-16] MEDS: Mupirocin 2% Ointment 22 GM Tube TOP SCH (08:58)
[2019-01-16 11:42] VITALS: BP 128/79; TEMP 98.7
--- NOTE | 2019-01-16 11:47 | PDOC.EVN ---
Event Note - Event Note Event Note: DC SUMMARY #[id number]
[2019-01-16] MEDS ORDERED: Atorvastatin Calcium 40 MG TAB PO SCH (12:00)
--- NOTE | 2019-01-16 12:30 | PRG ---
DATE OF SERVICE: 01/16/2019 Date of followup is 01/16/2019, via Telemedicine. CHIEF COMPLAINT: Acute stroke. INTERVAL HISTORY: The patient and report he still has some speech issues, and he has already seen the speech therapist here, and no other events. Current workup; MRI of his brain shows small acute left MCA infarct. PHYSICAL EXAMINATION: VITAL SIGNS: Temperature 98.2, pulse 63, respiratory rate 16, O2 saturations 93. GENERAL APPEARANCE: Well-built, well-nourished man, who appears comfortable. Speech is normal. NEUROLOGIC: Cranial nerve examination; normal extraocular movements. No facial asymmetry. Motor; bulk, normal. Tone, normal. Strength 5/5 in both upper and lower extremities. IMPRESSION: The patient is a 63-year-old man with small acute left MCA infarct, status post tPA. His carotid and cerebral angiograms are negative for any stenotic blood vessel. Echocardiogram is normal. There are no findings of atrial fibrillation or any cardiac arrhythmia on continuous EKG monitoring. It is unclear why he had a stroke with the small atherosclerotic lesion versus likely embolic lesion from the heart. RECOMMENDATIONS: Please have him see b2b account executive as outpatient, and from a neurological standpoint, he can be discharged with speech therapy as outpatient. Please continue aspirin and statin for now. Job ID: [id number]
--- NOTE | 2019-01-16 20:08 | DIS ---
DATE OF ADMISSION: 01/14/2019 DATE OF DISCHARGE: 01/16/2019 ADMITTING COMPLAINT: Hypertension, cerebral infarction, difficulty speaking, right-sided weakness, and hyperlipidemia. DISCHARGE DIAGNOSES: Hypertension, stable; status post CVA; status post tPA; hyperlipidemia; and anxiety. HOSPITAL COURSE: This is a 63-year-old male, admitted to the hospital with weakness noted on the right side and difficulty talking. The patient was admitted to Internal Medicine Team, had image studies done of the brain and was found to have a CVA. Given his timing of presentation, he was deemed to be a candidate for tPA. TPA was given to the patient. The patient was admitted to Internal Medicine Team on neurological floor and observed for changes in condition. The patient was evaluated by Pulmonary Team as well as Neurology. The patient had an echocardiogram done as well, which showed an ejection fraction of 55% to 60%, left atrium moderately dilated, trace MR. The patient otherwise had no other complaints at the point in time of discharge, completed physical therapy, was set up with home physical therapy as well prior to discharge. Case and plan discussed with the patient and at length. They understood and agreed to this plan. DISPOSITION: Home with home health care. FOLLOWUP: Follow up with PCP within 1 week. MEDICATIONS: See MAR. ACTIVITY: As tolerated with assistance as needed. DIET: Low-fat, low-calorie, high-fiber Vegan diet. CONDITION: Stable. PROGNOSIS: Good. Once again, case and plan discussed with the patient and family at length. The lana nurse, Wendy, was present in the room. All questions were answered. They understood and agreed to this plan. Job ID: [id number]
== END 2019-01-16 15:15 | disposition home health service (06) | DRG 62 ==
LOC: ERS 03:21 → CCU 05:13 → 2SE 01-15 06:55
PROVIDERS: ADMIT Hospitalist; ATTEND Hospitalist
DX: I63.9 Cerebral infarction, unspecified (principal); G81.91 Hemiplegia, unspecified affecting right dominant side; Z92.82 Status post administration of tPA (rtPA) in a different facility within the last 24 hours prior to admission to current facility; K21.9 Gastro-esophageal reflux disease without esophagitis; R47.01 Aphasia; I10 Essential (primary) hypertension; R29.810 Facial weakness; E78.5 Hyperlipidemia, unspecified; R47.1 Dysarthria and anarthria; Z90.49 Acquired absence of other specified parts of digestive tract
CPT/HCPCS: 36415; 36416; 70450; 70496; 70498; 70551; 80048; 80053; 80061; 82550; 84484; 85025; 85610; 85730; 86850; 86900; 86901; 93005; 93306; 94760; J2060; J2997; J7050

== ENCOUNTER 2019-01-21 05:58 | Day surgery (SDC) | payer OTHER ==
[2019-01-20 16:36] VITALS: BMI 35.4
[2019-01-21] MEDS ORDERED: PROPOFOL 40 ML ONE (07:39)
[2019-01-21] MEDS ORDERED: Fentanyl 100 MCG/2 ML VIAL ONE (07:52)
[2019-01-21] MEDS ORDERED: Fentanyl 250 MCG/5 ML VIAL ONE (08:31)
[2019-01-21] MEDS ORDERED: Midazolam HCl 5 mg/5 ml Vial ONE (08:31)
[2019-01-21] MEDS ORDERED: Apixaban 5 MG TAB PO SCH ×2 (10:00→21:00)
[2019-01-21] MEDS ORDERED: PROPOFOL 200 MG/20 ML VIAL ONE (13:08)
--- NOTE | 2019-01-21 17:32 | ECHO ---
ADDENDUM: We suspicioned that the patient had a ventricular septal defect. He then underwent a repeat transthoracic echocardiogram using a different technique and it was noted that the patient does indeed have a small ventricular septal defect. This is supracristal VSD. We will monitor the patient and he will be discharged to home. We will start him on oral anticoagulation. . MTDD
--- NOTE | 2019-01-22 04:22 | DIS ---
DATE OF ADMISSION: 01/21/2019 DATE OF DISCHARGE: 01/21/2019 DATE OF OUTPATIENT PROCEDURE: 01/04/2019. INDICATION OF ADMISSION: He was admitted to undergo an elective transesophageal cardiogram after the patient suffered a CVA with a left middle cerebral artery distribution recently. He was advised to undergo a transesophageal echocardiogram to rule out evidence of structural abnormalities or intracardiac thrombi or masses, vegetation or left atrial appendage thrombus. He was taken to the recovery area where he underwent the procedure today. OTHER DIAGNOSES: Includes hypertension, dyslipidemia, anxiety. DISCHARGE DIAGNOSES: Hypertension, dyslipidemia, anxiety. Probable small membranous ventricular septal defect with [id number] shunting. DISCHARGE MEDICATIONS: Include tramadol 50 mg, tamsulosin 0.4 mg, metoprolol ER 50 mg once a day, atorvastatin 20 mg a day, gabapentin 300 mg, Pantoprazole 40 mg, fluticasone furoate 27.5 mcg spray each nostril daily, cetirizine HCL 10 mg daily, aspirin 81 mg a day, and I will start him on Eliquis 5 mg b.i.d. FOLLOWUP: Will be with me in the next 1 to 2 weeks in the office. He will continue to follow with Dr. Moseley. PROCEDURE IN HOSPITAL: Included a transesophageal cardiogram with agitated saline solution for a bubble study. HOSPITAL COURSE: A very pleasant 63-year-old gentleman who suffered a CVA recently was advised to undergo a transesophageal echocardiogram to rule out evidence of abnormalities including left atrial appendage thrombus or intracardiac thrombi, masses or other structural abnormalities that may have not been seen by the transthoracic echocardiogram. He was taken to the lab today after the OSCAR was performed, a bubble study. It was noted during the agitated bubble study, there was evidence of bubbles into the left side after just 1 or 2 beats and then it also appeared that he may have a small membranous VSD. I cannot elicit any atrial septal defect or patent foramen ovale. We will continue to follow the patient. We will start him on anticoagulation for now and further evaluation will depend on further evaluation of his studies. I will ask one of my colleagues to review this to see whether or not any further workup would be indicated. The other option should he have any further problems would be most likely closure of the small membranous VSD, but he does not have any evidence of any right ventricular dilatation or right atrial dilatation and I suspect this is a very small VSD, but we will discuss this echocardiogram with my colleagues to see if they were in agreement with this diagnosis. Addendum: repeat TTE indicates a small supracristal VSD. Oral anticoagulation will be started. Consider Linq implant. I will see him in the office in the next 1-2 weeks. Job ID: [id number] [facility]
== END 2019-01-21 10:35 | disposition home or self-care (01) ==
LOC: CCL 05:58
PROVIDERS: ATTEND Internal Medicine Cardiovascular Disease
PROC: B245ZZ4 Ultrasonography of Left Heart, Transesophageal (ICD-10-PCS; principal; 2019-01-21)
DX: Q21.0 Ventricular septal defect (principal); I10 Essential (primary) hypertension; E78.5 Hyperlipidemia, unspecified; F41.9 Anxiety disorder, unspecified; Z86.73 Personal history of transient ischemic attack (TIA), and cerebral infarction without residual deficits
CPT/HCPCS: 93312; J2250; J2704; J3010

== ENCOUNTER 2019-07-28 06:25 | Outpatient (CLI) | payer OTHER ==
[2019-07-28 10:17] LABS: Mean Corpuscular Hemoglobin 29.3 pg (27.0-31.0); Mean Corpuscular Volume 88.8 fL (78.0-98.0); Mean Platelet Volume 8.3 fL (7.4-10.4); Platelet Count 205 thou/uL (130-400); RBC Distribution Width 12.5 % (11.5-14.5); Red Blood Cell (RBC) Count 4.78 mill/uL (4.70-6.10); White Blood Cell (WBC) Count 6.1 thou/uL (4.8-10.8)
[2019-07-28 10:23] LABS: Anion Gap 10 mmol/L (10-20); BUN (Urea Nitrogen) 10 mg/dL (8.4-25.7); Calc. Creatinine Clearance 0 mL/min (70-130); Calcium 9.6 mg/dL (7.8-10.44); Carbon Dioxide 29 mmol/L (23-31); Chloride 107 mmol/L (98-107); Estimated GFR-MDRD 88; Glucose 101 mg/dL (80-115); Potassium 4.1 mmol/L (3.5-5.1); Sodium 142 mmol/L (136-145)
[2019-07-28 10:31] LABS: INR-International Normal Ratio 1.1
[2019-07-28 10:32] LABS: PTT 32.5 SEC (22.9-36.1)
--- NOTE | 2019-07-29 17:49 | EKG ---
Test Reason : Blood Pressure : / mmHG Vent. Rate : 063 BPM Atrial Rate : 063 BPM P-R Int : 152 ms QRS Dur : 148 ms QT Int : 434 ms P-R-T Axes : 030 102 043 degrees QTc Int : 444 ms Normal sinus rhythm Right bundle branch block Abnormal ECG When compared with ECG of 14-JAN-2019 03:43, No significant change was found Confirmed by Ayla ARREAGA ([id number]) on 07/29/2019 5:49:41 PM Referred By: RICA Confirmed By:Ayla ARREAGA
== END 2019-07-28 06:26 | disposition home or self-care (01) ==
LOC: LABBT 06:25
PROVIDERS: ATTEND Orthopaedic Surgery
DX: Z01.818 Encounter for other preprocedural examination (principal); M17.12 Unilateral primary osteoarthritis, left knee
CPT/HCPCS: 80048; 85027; 85610; 85730; 86850; 86900; 86901; 87081; 93005; 93010

== ENCOUNTER 2019-08-01 07:22 | Day surgery (SDC) | payer OTHER ==
[2019-07-28 08:41] VITALS: BMI 32.5
[2019-08-01] MEDS ORDERED: Sodium Chloride 0.9% 100 ML ONE (08:13)
[2019-08-01] MEDS ORDERED: Tranexamic Acid 1,000 MG/10 ML VIAL ONE ×2 (08:13→12:33)
[2019-08-01] MEDS ORDERED: Midazolam HCl 2 mg/2 ml Vial ONE (08:16)
[2019-08-01] MEDS ORDERED: Fentanyl 100 MCG/2 ML VIAL ONE ×3 (08:16→13:00)
[2019-08-01] MEDS ORDERED: Bupivacaine 0.25% HCL 30 ML VIAL ONE (09:19)
[2019-08-01] MEDS ORDERED: Neomycin-Polymyxin 1 ML AMP ONE (09:39)
[2019-08-01] MEDS ORDERED: HYDROcodone/Acetaminophen 10/325 mg Tablet PO PRN ×3 (10:28→12:28)
[2019-08-01] MEDS ORDERED: traMADol HCl 50 MG TAB PO PRN (10:28)
[2019-08-01] MEDS ORDERED: Ropivacaine HCl/PF 250 ML in Premix Bag 1 BAG NERVE BLCK SCH (10:28)
[2019-08-01] MEDS ORDERED: Ondansetron PF 4 MG/2 ML Vial IVP PRN ×2 (10:28→12:28)
[2019-08-01] MEDS ORDERED: Promethazine HCl 25 MG/ML VIAL IM PRN ×3 (10:28→12:28)
[2019-08-01] MEDS ORDERED: Zolpidem Tartrate 5 MG TAB PO PRN ×2 (10:28→12:28)
[2019-08-01] MEDS ORDERED: Fentanyl 100 MCG/2 ML VIAL SLOW IVP PRN (10:29)
[2019-08-01] MEDS ORDERED: Ropivacaine 0.5% HCl/PF (150 MG/30 ML VIAL) ONE (10:30)
[2019-08-01] MEDS ORDERED: PROPOFOL 200 MG/20 ML VIAL ONE (10:30)
[2019-08-01] MEDS ORDERED: Ropivacaine 0.2% HCl/PF (40 MG/20 ML VIAL) ONE (10:30)
[2019-08-01] MEDS ORDERED: ePHEDrine/0.9% NaCl/PF SYRINGE 50 mg/10 ml ONE (10:30)
[2019-08-01] MEDS ORDERED: Dexamethasone 20 MG/5 ML VIAL ONE (10:30)
[2019-08-01] MEDS ORDERED: PHENYLEPHRINE-NS 100 MCG/ML 10 ML SYRINGE ONE (10:30)
[2019-08-01] MEDS ORDERED: Ketorolac Tromethamine 30 MG/ML VIAL ONE (10:30)
[2019-08-01] MEDS ORDERED: Ondansetron PF 4 MG/2 ML Vial ONE ×2 (10:30→12:58)
[2019-08-01] MEDS ORDERED: Lidocaine 1% PF 5 ML VIAL ONE (10:30)
[2019-08-01] MEDS ORDERED: Promethazine HCl 25 MG/ML VIAL SLOW IVP PRN (10:56)
[2019-08-01] MEDS ORDERED: Morphine Sulfate 2 MG/ML SYRINGE SLOW IVP PRN (10:56)
[2019-08-01] MEDS ORDERED: Ondansetron HCl/PF 4 MG/2 ML Vial IVP PRN (10:56)
[2019-08-01] MEDS ORDERED: Morphine 4 MG/ML VIAL SLOW IVP PRN (12:28)
[2019-08-01] MEDS ORDERED: diphenhydrAMINE 25 MG CAP PO PRN (12:28)
[2019-08-01] MEDS ORDERED: Morphine 2 MG/ML SYRINGE SLOW IVP PRN (12:28)
[2019-08-01] MEDS ORDERED: Tranexamic Acid 1,000 MG in Sodium Chloride 0.9% 100 ML IVPB SCH (12:30)
--- NOTE | 2019-08-01 12:45 | RAD ---
Left knee 2 views HISTORY: Arthritis. Knee replacement. FINDINGS: Total knee prosthesis in place. No. Hardware lucency. Skin serge and soft tissue gas are apparent. IMPRESSION: Left knee prosthesis in good radiographic position.
[2019-08-01] MEDS: Ketorolac Tromethamine 30 MG/ML VIAL IVP SCH ×2 (14:40→17:40)
[2019-08-01] MEDS: Sodium Chloride 0.9% 1,000 ML IV SCH ×2 (14:44→22:09)
--- NOTE | 2019-08-01 15:17 | PDOC.HHP ---
Hospitalist HPI - History of Present Illness Left knee replacement History of Present Illness: 63 YO man with a PMH of HTN, DJD, HLD and CVA in December 2018 s/ TPA with resultant mild right hemiparesis who was scheduled for a Left knee replacement due to worsening pain during ambulation. Pt was seen after his sx as a medical consult to the hospitalist service. He currently has no complaints and denied pain at this time. Hospitalist ROS - Review of Systems Constitutional: denies: fever, chills, sweats, weakness, malaise, other Eyes: denies: pain, vision change, conjunctivae inflammation, eyelid inflammation, redness, other ENT: denies: ear pain, ear discharge, nose pain, nose discharge, nose congestion , mouth pain, mouth swelling, throat pain, throat swelling, other Respiratory: denies: cough, dry, shortness of breath, hemoptysis, SOB with excertion, pleuritic pain, sputum, wheezing, other Cardiovascular: denies: chest pain, palpitations, orthopnea, paroxysmal noc. dyspnea, edema, light headedness, other Gastrointestinal: denies: nausea, vomiting, abdominal pain, diarrhea, constipation, melena, hematochezia, other Genitourinary: denies: dysuria, frequency, incontinence, hematuria, retention, other Musculoskeletal: denies: neck pain, shoulder pain, arm pain, back pain, hand pain, leg pain, foot pain, other Skin: denies: rash, lesions, maia, bruising, other Neurological: denies: weakness, numbness, incoordination, change in speech, confusion, seizures, other - Medication Medications: Active Medications Generic Name Dose Route Start Last Admin Trade Name Freq PRN Reason Stop Dose Admin Sodium Chloride 1,000 mls @ 100 mls/hr 08/01/19 12:30 08/01/19 14:44 Normal Saline 0.9% IV Not Given .Q10H [facility] Ketorolac Tromethamine 30 mg 08/01/19 12:00 08/01/19 14:40 Toradol IVP 08/03/19 06:01 Not Given Q6HR [facility] Hospitalist History - Past Medical History Source: patient Cardiac: reports: HTN Pulmonary: reports: CVA/TIA/stroke, high cholesterol - Past Surgical History Past Surgical History: reports: Appendectomy, Cholecystectomy, Cataract Removal , Total Knee Replacement - Family History Family History: reports: hypertension - Social History Smoking Status: Never smoker Alcohol: reports: None Drugs: reports: none Living Situation: With Family Domestic Violence: Negative Activity level: independent ambulation - Exam General Appearance: NAD, awake alert Eye: PERRL, anicteric sclera ENT: normocephalic atraumatic, no oropharyngeal lesions, moist mucosa Neck: supple, symmetric, no JVD, no thyromegaly, no lymphadenopathy, no carotid bruit Heart: RRR, no murmur, no gallops, no rubs, normal peripheral pulses Respiratory: CTAB, no wheezes, no rales, no ronchi, normal chest expansion, no tachypnea, normal percussion Gastrointestinal: soft, non-tender, non-distended, normal bowel sounds, no palpable masses, no hepatomegaly, no splenomegaly, no bruit Extremities: no cyanosis, no clubbing, no edema Extremities - other findings: Dressing over left knee Skin: normal turgor, no lesions, no rashes Neurological: cranial nerve grossly intact, normal sensation to touch, no weakness, no focal deficits, no new deficit Hospitalist H&P A/P - Problem (1) CVA (cerebral vascular accident) Code(s): I63.9 - CEREBRAL INFARCTION, UNSPECIFIED Status: Chronic Assessment and Plan: Stable. No acute issues, cont prior meds (2) Status post left knee replacement Code(s): Z96.652 - PRESENCE OF LEFT ARTIFICIAL KNEE JOINT Status: Acute Assessment and Plan: Cont mgt per Ortho. F/u with PT/OT recs. Control pain. (3) HTN (hypertension) Code(s): I10 - ESSENTIAL (PRIMARY) HYPERTENSION Status: Acute Qualifiers: Hypertension type: essential hypertension Qualified Code(s): I10 - Essential (primary) hypertension Assessment and Plan: Controlled. Cont home meds. Monitor BP. - Plan Plan: Prophylaxis: SCD. Code Status: Full. Dispo: Cont current mgt.
[2019-08-01] MEDS: HYDROcodone/Acetaminophen 10/325 mg Tablet PO PRN ×2 (16:25→20:07)
[2019-08-01] MEDS: CEFAZOLIN 2 GM in Premix Bag 1 BAG IVPB SCH (17:40)
--- NOTE | 2019-08-01 20:03 | OP ---
DATE OF PROCEDURE: 08/01/2019 PREOPERATIVE DIAGNOSIS: Osteoarthritis, left knee. POSTOPERATIVE DIAGNOSIS: Osteoarthritis, left knee. PROCEDURE PERFORMED: Left total knee arthroplasty. ANESTHESIA: General. COMPLICATION: None. CONDITION: Good. ESTIMATED BLOOD LOSS: Minimal. DRAINS: None. TOURNIQUET: Per Anesthesia. TECHNIQUE: Simple stain. DESCRIPTION OF PROCEDURE: The patient was taken to the operating room, placed in supine position. After adequate general anesthesia achieved, the patient's left knee was examined and significant varus deformity was partially correctable to neutral. [id number] effusion. He lacked approximately 8 to 10 degrees full extension and had a 110 degrees of flexion. Normal tracking. Ligaments are stable. He was then positioned, prepped, and draped in sterile fashion. Tourniquet was placed on left upper thigh. Leg was elevated, exsanguinated, inflated prior to incision. Standard midline vertical incision was made using a subcutaneous tissues exposing extensor mechanism. Medial parapatellar arthrotomy was performed. Patella subluxed laterally. The patient had advanced tricompartmental disease with severe medial compartment, degenerative changes and erosion with a grade 2 and 3 patellofemoral, grade 2 lateral compartment. Using intramedullary guide, distal 5 degree valgus resection on the femur was performed. Using AP and epicondylar axis, proper rotation position with the size 7 cutting block was placed. Anterior, posterior, and chamber cuts were completed for a size 7 evolution femur. The tibia was then subluxed anteriorly using external guide and referencing from the deficient medial compartment. Appropriate resection was performed. Menisci and cruciate ligaments were debrided and additional medial release was performed. The flexion-extension gaps were then checked with the 10 and 12 mm spacer blocks. Good balancing was noted at 0 degrees with a 12 mm block. The patella was then measured, approximately 10 mm resection was performed. A 38 mm patella was medialized. The trial components were then placed, 7 femur, 7 tibia, 38 patella, and a 12 mm bearing surfaces put through range of motion. The patient had a full flexion and extension with good balancing through full range. The tibia was then marked, prepared with the broach. All surfaces were irrigated copiously dried. Femur, tibia, and patella cemented. Excess cement removed. The size 12 implant was chosen. This was snapped fit and a copious irrigation arthrotomy was closed with #2 M[place]il[place], #1 Vicryl, the subcu with 0 and 2-0 Vicryl, and skin with serge. Sterile bulky dressing was applied. The patient was taken to Recovery. PLAN: Begin rehab protocol. PROGNOSIS: Good. Job ID: [id number]
[2019-08-01] MEDS: Gabapentin 300 MG CAP PO SCH (20:06)
[2019-08-01] MEDS: Atorvastatin Calcium 40 MG TAB PO SCH (20:07)
[2019-08-02] MEDS: Ketorolac Tromethamine 30 MG/ML VIAL IVP SCH ×5 (00:42→23:54)
[2019-08-02] MEDS: HYDROcodone/Acetaminophen 10/325 mg Tablet PO PRN ×2 (00:43→08:25)
[2019-08-02] MEDS: CEFAZOLIN 2 GM in Premix Bag 1 BAG IVPB SCH (01:00)
[2019-08-02 05:36] LABS: Hemoglobin 11.8 g/dL (14.0-18.0); Mean Corpuscular HGB CONC 33.2 g/dL (32.0-36.0); Mean Corpuscular Hemoglobin 29.3 pg (27.0-31.0); Mean Corpuscular Volume 88.3 fL (78.0-98.0); Mean Platelet Volume 8.1 fL (7.4-10.4); Platelet Count 178 thou/uL (130-400); RBC Distribution Width 12.3 % (11.5-14.5); Red Blood Cell (RBC) Count 4.02 mill/uL (4.70-6.10); White Blood Cell (WBC) Count 12.4 thou/uL (4.8-10.8)
[2019-08-02] MEDS: Apixaban 5 MG TAB PO SCH ×2 (08:23→20:50)
[2019-08-02] MEDS: Ferrous Gluconate 324 MG TAB PO SCH ×2 (08:24→20:51)
[2019-08-02] MEDS: Tamsulosin HCl 0.4 MG CAP PO SCH (08:24)
[2019-08-02] MEDS: Loratadine 10 MG TAB PO SCH (08:24)
[2019-08-02] MEDS: Senokot S 8.6-50 MG TAB PO SCH ×2 (08:24→20:50)
[2019-08-02] MEDS: Multivitamin W/ Minerals 1 TAB PO SCH (08:24)
[2019-08-02] MEDS: Sodium Chloride 0.9% 1,000 ML IV SCH ×2 (08:31→17:46)
[2019-08-02] MEDS ORDERED: Pantoprazole 40 MG GRANULES PACKET PO SCH (09:00)
--- NOTE | 2019-08-02 13:01 | PDOC.HOSPP ---
- Subjective Encounter Date: 08/02/19 Encounter Time: 09:15 Subjective: Patient seen and examined for med mngt. No CP/SOB/focal deficits. No new complaints. No overnight events - Objective Vital Signs & Weight: Vital Signs (12 hours) Temp Pulse Resp BP Pulse Ox 08/02/19 08:23 96 08/02/19 08:00 98.8 F 78 14 122/82 96 08/02/19 04:00 97.4 F L 71 18 108/72 94 L Weight Weight 220 lb I&O: 08/01/19 08/02/19 08/03/19 06:59 06:59 06:59 Intake Total 1960 Output Total 975 Balance 985 Result Diagrams: 08/02/19 05:15 Additional Labs: Laboratory Tests 07/28/19 09:10 Creatinine 0.88 Hospitalist ROS - Review of Systems Respiratory: denies: cough, dry, shortness of breath, hemoptysis, SOB with excertion, pleuritic pain, sputum, wheezing, other Cardiovascular: denies: chest pain, palpitations, orthopnea, paroxysmal noc. dyspnea, edema, light headedness, other - Medication Medications: Active Medications Generic Name Dose Route Start Last Admin Trade Name Freq PRN Reason Stop Dose Admin Hydrocodone Bitart/Acetaminophen 2 tab 08/01/19 12:28 08/02/19 08:25 [place] 10/325 PO 2 tab Q4H PRN Administration Severe Pain (7-10) Apixaban 5 mg 08/02/19 09:00 08/02/19 08:23 Eliquis PO 5 mg BID MARIAH Administration Atorvastatin Calcium 40 mg 08/01/19 21:00 08/01/19 20:07 Lipitor PO 40 mg HS MARIAH Administration Ferrous Gluconate 324 mg 08/02/19 09:00 08/02/19 08:24 Fergon PO 324 mg BID MARIAH Administration Gabapentin 300 mg 08/01/19 21:00 08/01/19 20:06 Neurontin PO 300 mg HS MARIAH Administration Sodium Chloride 1,000 mls @ 100 mls/hr 08/01/19 12:30 08/02/19 08:31 Normal Saline 0.9% IV Not Given .Q10H MARIAH Iron/Minerals/Multivitamins 1 tab 08/02/19 09:00 08/02/19 08:24 Theragran M PO 1 tab DAILY MARIAH Administration Ketorolac Tromethamine 30 mg 08/01/19 12:00 08/02/19 11:55 Toradol IVP 08/03/19 06:01 30 mg Q6HR MARIAH Administration Loratadine 10 mg 08/02/19 09:00 08/02/19 08:24 Claritin PO 10 mg DAILY MARIAH Administration Ondansetron HCl 4 mg 08/01/19 10:28 08/02/19 08:23 Zofran IVP 4 mg Q6H PRN Administration Nausea/Vomiting Ondansetron HCl 4 mg 08/01/19 12:28 08/01/19 21:31 Zofran IVP 4 mg Q6H PRN Administration Nausea/Vomiting Pantoprazole Sodium 40 mg 08/02/19 09:00 08/02/19 08:24 Protonix PO 40 mg Q2D@0900 MARIAH Administration Senna/Docusate Sodium 2 tab 08/02/19 09:00 08/02/19 08:24 Senokot S PO Not Given BID MARIAH Sodium Chloride 10 ml 08/01/19 12:28 08/02/19 08:23 Flush - Normal Saline IVF 10 ml PRN PRN Administration Saline Flush Tamsulosin HCl 0.4 mg 08/02/19 09:00 08/02/19 08:24 Flomax PO 0.4 mg QAM MARIAH Administration - Exam General Appearance: NAD Heart: RRR, no gallops Respiratory: CTAB, no rales Gastrointestinal: soft, non-distended Extremities: no edema Neurological: no new deficit Psychiatric: A&O x 3 Hosp A/P - Plan DVT proph w/SCDs HTN h/o CVA - on chronic anticoagulation Obesity BMI 32.5 GERD CKD 2 Anxiety HLD BPH Peripheral neuropathy DJD PLAN: Eliquis restarted PT/OT Cont Flomax Cont Statins Cont PPI Cont Gabapentin
[2019-08-02] MEDS ORDERED: Mag-Al 1200 mg/1200 mg/30 ML UDCUP PO PRN (13:22)
[2019-08-02] MEDS: traMADol HCl 50 MG TAB PO PRN ×2 (14:55→20:51)
[2019-08-02] MEDS: Atorvastatin Calcium 40 MG TAB PO SCH (20:50)
[2019-08-02] MEDS: Gabapentin 300 MG CAP PO SCH (20:51)
[2019-08-03] MEDS: Sodium Chloride 0.9% 1,000 ML IV SCH (04:25)
[2019-08-03 06:07] LABS: Hemoglobin 10.7 g/dL (14.0-18.0); Mean Corpuscular HGB CONC 33.7 g/dL (32.0-36.0); Mean Corpuscular Hemoglobin 29.9 pg (27.0-31.0); Mean Corpuscular Volume 88.9 fL (78.0-98.0); Mean Platelet Volume 8.6 fL (7.4-10.4); Platelet Count 147 thou/uL (130-400); RBC Distribution Width 12.4 % (11.5-14.5); Red Blood Cell (RBC) Count 3.56 mill/uL (4.70-6.10); White Blood Cell (WBC) Count 7.8 thou/uL (4.8-10.8)
[2019-08-03] MEDS: Ketorolac Tromethamine 30 MG/ML VIAL IVP SCH ×2 (06:30→11:55)
[2019-08-03] MEDS: Tamsulosin HCl 0.4 MG CAP PO SCH (09:08)
[2019-08-03] MEDS: Loratadine 10 MG TAB PO SCH (09:08)
[2019-08-03] MEDS: Ferrous Gluconate 324 MG TAB PO SCH (09:08)
[2019-08-03] MEDS: Apixaban 5 MG TAB PO SCH (09:08)
[2019-08-03] MEDS: Multivitamin W/ Minerals 1 TAB PO SCH (09:08)
[2019-08-03] MEDS: Senokot S 8.6-50 MG TAB PO SCH (09:09)
[2019-08-03] MEDS: Acetaminophen 325 MG TAB PO PRN ×2 (09:17→14:12)
[2019-08-03] MEDS: traMADol HCl 50 MG TAB PO PRN ×2 (09:17→14:13)
[2019-08-03 11:22] VITALS: BP 114/75; TEMP 98
[2019-08-03] MEDS ORDERED: Ropivacaine 0.2% 550 ML 550 ML NERVE BLCK SCH (11:39)
== END 2019-08-03 15:31 | disposition home or self-care (01) ==
LOC: SDC 07:22 → EDSTATUS 08:00 → SJJU 12:28 → SDC 08-03 15:31
PROVIDERS: ATTEND Orthopaedic Surgery
PROC: 0SRD0JZ Replacement of Left Knee Joint with Synthetic Substitute, Open Approach (ICD-10-PCS; principal; 2019-08-03)
DX: M17.12 Unilateral primary osteoarthritis, left knee (principal); I12.9 Hypertensive chronic kidney disease with stage 1 through stage 4 chronic kidney disease, or unspecified chronic kidney disease; N18.2 Chronic kidney disease, stage 2 (mild); E78.00 Pure hypercholesterolemia, unspecified; E78.5 Hyperlipidemia, unspecified; F41.9 Anxiety disorder, unspecified; N40.0 Benign prostatic hyperplasia without lower urinary tract symptoms; G62.9 Polyneuropathy, unspecified; E66.9 Obesity, unspecified; Z68.32 Body mass index [BMI] 32.0-32.9, adult; Z79.01 Long term (current) use of anticoagulants; Z79.899 Other long term (current) drug therapy; Z86.73 Personal history of transient ischemic attack (TIA), and cerebral infarction without residual deficits
CPT/HCPCS: 36415; 85027; A4306; C1713; C1776; J0690; J1100; J1885; J2001; J2250; J2405; J2550; J2704; J2795; J3010; J3370; J3490; S0020

== ENCOUNTER 2020-02-23 11:14 | Emergency (ER) | payer OTHER ==
[2020-02-23 11:52] LABS: #Lymphocytes 0.5 thou/uL (1.20-3.40); #Monocytes 0.3 thou/uL (0.11-0.59); #Neutrophils 3.6 thou/uL (1.40-6.50); %Basophils 0.4 % (0.0-1.0); %Monocytes 7.2 % (0.0-10.0); %Neutrophils 81.3 % (42.0-75.0); Hemoglobin 14.3 g/dL (14.0-18.0); Mean Corpuscular HGB CONC 33.3 g/dL (32.0-36.0); Mean Corpuscular Hemoglobin 29.3 pg (27.0-31.0); Mean Platelet Volume 8.9 fL (7.4-10.4); Platelet Count 140 thou/uL (130-400); RBC Distribution Width 13.5 % (11.5-14.5); Red Blood Cell (RBC) Count 4.87 mill/uL (4.70-6.10); White Blood Cell (WBC) Count 4.4 thou/uL (4.8-10.8)
[2020-02-23] MEDS ORDERED: Albuterol 200 PUFF (6.7GM INHALER) ONE (12:01)
--- NOTE | 2020-02-23 12:12 | RAD ---
XR Chest 1 View Portable HISTORY: Cough, shortness of breath COMPARISON: 07/21/2012 FINDINGS: The heart size is normal. The lungs are well expanded without focal areas of consolidation, pneumothorax or pleural effusions. IMPRESSION: No radiographic evidence of acute cardiopulmonary process. Please note that chest radiographs exhibit low sensitivity for subtle groundglass opacities that can be seen in viral infections.
[2020-02-23 12:16] LABS: ALT (SGPT) 26 U/L (8-55); AST (SGOT) 32 U/L (5-34); Albumin 3.9 g/dL (3.4-4.8); Alkaline Phosphatase 67 U/L (40-110); Anion Gap 12 mmol/L (10-20); BUN (Urea Nitrogen) 16 mg/dL (8.4-25.7); Bilirubin, Total 0.6 mg/dL (0.2-1.2); Calc. Creatinine Clearance 0 mL/min (70-130); Calcium 8.6 mg/dL (7.8-10.44); Carbon Dioxide 26 mmol/L (23-31); Chloride 104 mmol/L (98-107); Estimated GFR-MDRD 81; Globulin 3.2 g/dL (2.4-3.5); Glucose 99 mg/dL (80-115); Protein, Total 7.1 g/dL (5.8-8.1); Sodium 138 mmol/L (136-145)
[2020-02-23] MEDS ORDERED: Aspirin Chewable 81 MG TAB ONE (13:45)
[2020-02-24 16:09] LABS: SARS-CoV-2 MS2 Positive; SARS-CoV-2 N Gene Positive; SARS-CoV-2 S Gene Positive; SARS-CoV-2 orf1ab Positive
== END 2020-02-23 14:22 | disposition home or self-care (01) ==
LOC: ERS 11:14
DX: U07.1 COVID-19 (principal); K21.9 Gastro-esophageal reflux disease without esophagitis; I10 Essential (primary) hypertension; Z86.73 Personal history of transient ischemic attack (TIA), and cerebral infarction without residual deficits; Z79.899 Other long term (current) drug therapy
CPT/HCPCS: 71045; 80053; 83605; 84484; 85025; 85379; 87635; 93005; 96360; U0003

== ENCOUNTER 2020-02-25 13:40 | Inpatient (IN) | payer OTHER ==
[~2020-02-25 13:40] MED LIST: Iopamidol-370 76% 500 ML 1 ML ONE
[2020-02-25 14:26] LABS: #Lymphocytes 0.4 thou/uL (1.20-3.40); #Monocytes 0.4 thou/uL (0.11-0.59); #Neutrophils 6.6 thou/uL (1.40-6.50); %Lymphocytes 5.2 % (21.0-51.0); %Monocytes 5.4 % (0.0-10.0); %Neutrophils 89.3 % (42.0-75.0); Hemoglobin 12.9 g/dL (14.0-18.0); Mean Corpuscular HGB CONC 32.5 g/dL (32.0-36.0); Mean Corpuscular Hemoglobin 28.7 pg (27.0-31.0); Mean Corpuscular Volume 88.3 fL (78.0-98.0); Mean Platelet Volume 8.3 fL (7.4-10.4); Platelet Count 158 thou/uL (130-400); RBC Distribution Width 13.6 % (11.5-14.5); Red Blood Cell (RBC) Count 4.51 mill/uL (4.70-6.10); White Blood Cell (WBC) Count 7.4 thou/uL (4.8-10.8)
[2020-02-25 14:47] LABS: ALT (SGPT) 35 U/L (8-55); AST (SGOT) 41 U/L (5-34); Albumin 3.6 g/dL (3.4-4.8); Alkaline Phosphatase 57 U/L (40-110); Anion Gap 12 mmol/L (10-20); BUN (Urea Nitrogen) 13 mg/dL (8.4-25.7); Bilirubin, Total 0.7 mg/dL (0.2-1.2); CK (CPK) 88 U/L (30-200); Calc. Creatinine Clearance 0 mL/min (70-130); Calcium 8.3 mg/dL (7.8-10.44); Carbon Dioxide 26 mmol/L (23-31); Chloride 104 mmol/L (98-107); Estimated GFR-MDRD 85; Glucose 135 mg/dL (80-115); Potassium 3.6 mmol/L (3.5-5.1); Protein, Total 6.6 g/dL (5.8-8.1); Sodium 138 mmol/L (136-145)
--- NOTE | 2020-02-25 15:24 | RAD ---
PORTABLE CHEST: 02/25/20 PROVIDED CLINICAL HISTORY: COVID pneumonia. FINDINGS: Comparison 02/23/20. Cardiac and mediastinal silhouette is unchanged in appearance. There is interval increase in conspicu ity in the bilateral air space disease. There is no pleural fluid or pneumothorax apparent. IMPRESSION: Patchy bilateral air space disease, compatible with pneumonia in the appropriate clinical context. POS: GALILEA
[2020-02-25 15:55] LABS: Actual Bicarbonate (HCO3a) 22.4 mEq/L (22-28); Analyzer IN Cardio ER; Base Excess (BEa) -0.8 mEq/L (-2.0 to +3.0); CO2 Tension 32.6 mmHg (35.0-45.0); Carboxyhemoglobin (COHb) 0.4 gm% (0.0-3.0); Hemoglobin (Hb) 13.5 g/dL (14.0-18.0); Potassium - ABG Lab 3.86 mmol/L (3.70-5.30); pH, Arterial 7.45 (7.35-7.45)
[2020-02-25 16:03] LABS: O2 Tension (PaO2), arterial 59.4 mmHg (> 80.0); Puncture Site RA
--- NOTE | 2020-02-25 16:35 | CT ---
CT ANGIOGRAM THORAX WITH IV CONTRAST AND 3-D RECONSTRUCTIONS CLINICAL INDICATION: Increasing shortness of breath. COMPARISON: None FINDINGS: Pulmonary arteries: No filling defects are seen within the central pulmonary arteries. There is subop timal opacification of the segmental and subsegmental pulmonary arteries as well as limited evaluation of the lower lobe pulmonary arteries due to motion artifact. Aorta: Vascular calcifications are seen in the thoracic aorta. Ascending thoracic aorta is ectatic me asuring 4.4 cm in greatest dimension. There is no evidence of an aortic dissection. Lungs: Multiple scattered groundglass densities are seen throughout the lungs bilaterally with linear patchy parenchymal densities at each lung base. Findings are overall nonspecific, but these findings can be seen with viral pneumonitis. No pleural effusion is seen. Mediastinum: No enlarged mediastinal lymph nodes are seen by CT size criteria. There is increased sof t tissue density in each hilar region suggesting lymphadenopathy likely reactive in origin. Thyroid gland: Normal in appearance where visualized. Osseous structures: No acute process. Chest wall: No abnormality visualized. Upper abdomen: Postcholecystectomy changes are present. A few colonic diverticula are seen. IMPRESSION: 1. Suboptimal contrast opacification limiting evaluation for pulmonary emboli involving the segmental and subsegmental pulmonary arteries. No filling defect is seen in the subsegmental pulmonary arteries, and there is no obvious filling defect within the proximal segmental pulmonary arteries to suggest pulmonary emboli at these levels. 2. Scattered multifocal areas of patchy groundglass opacity with linear patchy parenchymal densities at each lung base. Findings are suggestive of infectious process and atypical infectious process is a possibility. These findings can be seen with viral pneumonitis as well. 3. Hilar lymphadenopathy likely reactive in origin. 4. Ectasia of the ascending thoracic aorta.
[2020-02-25] MEDS ORDERED: methylPREDNISolone Sod Succ/PF 125 MG/2 ML VIAL ONE (17:23)
[2020-02-25] MEDS ORDERED: Azithromycin 500 MG VIAL ONE (17:23)
[2020-02-25] MEDS ORDERED: HYDROcodone/Acetaminophen 7.5/325 mg Tablet PO PRN ×2 (18:02)
[2020-02-25] MEDS ORDERED: Senokot S 8.6-50 MG TAB PO PRN (18:02)
[2020-02-25 18:29] LABS: Troponin I 0.022 ng/mL (< 0.028)
[2020-02-25] MEDS ORDERED: Dexamethasone 4 MG TAB PO SCH (19:15)
--- NOTE | 2020-02-25 19:25 | PDOC.HHP ---
Hospitalist HPI - History of Present Illness Dyspnea History of Present Illness: Patient is Covid+, starting feeling badly a week ago, had a positive test 2 days ago when evaluated in the ED but was not hypoxic on that visit so he was sent home. He came back todau when his work of breathing increased and he felt more short of breath without much effort. He reports several members of his family are also Covid-19 positive. ED Course: CTA chest without evidence of pulmonary emboli, hypoxic on RA--90%, mid 90's with 2L NC. DDimer 0.74, ABG with P02 59.4, Hgb 12.9, Hct 39.8, ferritin 544.77 , CRP 14.36 - was given Azithromycin 500mg IVPB, Solu-medrol 125mg, and NS 500ml , Hospitalist ROS - Review of Systems Constitutional: reports: fever, chills, malaise Eyes: denies: pain, vision change, conjunctivae inflammation, eyelid inflammation, redness, other ENT: denies: ear pain, ear discharge, nose pain, nose discharge, nose congestion , mouth pain, mouth swelling, throat pain, throat swelling, other Respiratory: reports: cough, shortness of breath, SOB with excertion Cardiovascular: reports: orthopnea. denies: chest pain Gastrointestinal: reports: nausea. 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 Gastrointestinal: reports: GERD - Past Surgical History Past Surgical History: reports: Appendectomy, Cholecystectomy, Cataract Removal , Total Knee Replacement - Social History Smoking Status: Never smoker Alcohol: reports: None Drugs: reports: none Living Situation: With Family Activity level: independent ambulation - Exam Eye: PERRL, anicteric sclera ENT: normocephalic atraumatic, dry oral mucosa Neck: supple, no JVD Heart: RRR, normal peripheral pulses Respiratory: normal chest expansion, tachypneic Gastrointestinal: soft, non-tender, normal bowel sounds Extremities: no edema Skin: normal turgor Neurological: no focal deficits Musculoskeletal: generalized weakness Psychiatric: normal affect, A&O x 3 Hospitalist Results - Labs Result Diagrams: 02/25/20 14:15 02/25/20 14:15 Lab results: WBC 7.4 thou/uL (4.8-10.8) 02/25/20 14:15 Hgb 12.9 g/dL (14.0-18.0) L 02/25/20 14:15 Hct 39.8 % (42.0-52.0) L 02/25/20 14:15 MCV 88.3 fL (78.0-98.0) 02/25/20 14:15 Plt Count 158 thou/uL (130-400) 02/25/20 14:15 Neutrophils % 89.3 % (42.0-75.0) H 02/25/20 14:15 ABG pH 7.45 (7.35-7.45) 02/25/20 15:50 ABG pCO2 32.6 mmHg (35.0-45.0) L 02/25/20 15:50 ABG pO2 59.4 mmHg (> 80.0) L* 02/25/20 15:50 Sodium 138 mmol/L (136-145) 02/25/20 14:15 Potassium 3.6 mmol/L (3.5-5.1) 02/25/20 14:15 Chloride 104 mmol/L (98-107) 02/25/20 14:15 Carbon Dioxide 26 mmol/L (23-31) 02/25/20 14:15 BUN 13 mg/dL (8.4-25.7) 02/25/20 14:15 Creatinine 0.90 mg/dL (0.7-1.3) 02/25/20 14:15 Glucose 135 mg/dL (80-115) H 02/25/20 14:15 Calcium 8.3 mg/dL (7.8-10.44) 02/25/20 14:15 Total Bilirubin 0.7 mg/dL (0.2-1.2) 02/25/20 14:15 AST 41 U/L (5-34) H 02/25/20 14:15 ALT 35 U/L (8-55) 02/25/20 14:15 Alkaline Phosphatase 57 U/L (40-110) 02/25/20 14:15 Creatine Kinase 88 U/L (30-200) 02/25/20 14:15 Troponin I 0.022 ng/mL (< 0.028) 02/25/20 18:04 C-Reactive Protein 14.36 mg/dL (= or < 0.5) H 02/25/20 18:10 B-Natriuretic Peptide 32.5 pg/mL (0-100) 02/25/20 14:15 Serum Total Protein 6.6 g/dL (5.8-8.1) 02/25/20 14:15 Albumin 3.6 g/dL (3.4-4.8) 02/25/20 14:15 - EKG Interpretation EKG: Rate 87 bpm, left atrial enlargement, RBBB, No ST depressions. Hospitalist H&P A/P - Problem (1) Hypoxia Code(s): R09.02 - HYPOXEMIA Status: Acute (2) COVID-19 Code(s): U07.1 - COVID-19 Status: Acute (3) Viral pneumonia Code(s): J12.9 - VIRAL PNEUMONIA, UNSPECIFIED Status: Acute (4) GERD (gastroesophageal reflux disease) Code(s): K21.9 - GASTRO-ESOPHAGEAL REFLUX DISEASE WITHOUT ESOPHAGITIS Status: Chronic (5) HTN (hypertension) Code(s): I10 - ESSENTIAL (PRIMARY) HYPERTENSION Status: Chronic Qualifiers: Hypertension type: essential hypertension Qualified Code(s): I10 - Essential (primary) hypertension - Plan Plan: O2 supplementation as needed to keep sats above 92% Decadron 6mg po daily Dr. Leon consulted IS encouraged Will restart home meds Case discussed with Dr. Lange DVT/GI prophylaxis started
[2020-02-25] MEDS: Acetaminophen 325 MG TAB PO PRN (19:31)
[2020-02-25 22:14] LABS: Troponin I 0.022 ng/mL (< 0.028)
[2020-02-25] MEDS: Albuterol 200 PUFF (6.7GM INHALER) INH SCH (22:18)
[2020-02-25] MEDS: Atorvastatin Calcium 40 MG TAB PO SCH (22:18)
[2020-02-25] MEDS: Gabapentin 300 MG CAP PO SCH (22:18)
[2020-02-25] MEDS: Tamsulosin HCl 0.4 MG CAP PO SCH (22:18)
[2020-02-26] MEDS: Albuterol 200 PUFF (6.7GM INHALER) INH SCH ×6 (02:19→21:04)
[2020-02-26] MEDS: Acetaminophen 325 MG TAB PO PRN (04:29)
[2020-02-26 05:02] LABS: ALT (SGPT) 40 U/L (8-55); AST (SGOT) 45 U/L (5-34); Albumin 3.3 g/dL (3.4-4.8); Alkaline Phosphatase 54 U/L (40-110); Anion Gap 10 mmol/L (10-20); BUN (Urea Nitrogen) 15 mg/dL (8.4-25.7); Bilirubin, Total 0.7 mg/dL (0.2-1.2); Calc. Creatinine Clearance 129 mL/min (70-130); Calcium 8.6 mg/dL (7.8-10.44); Carbon Dioxide 26 mmol/L (23-31); Chloride 107 mmol/L (98-107); Estimated GFR-MDRD Greater than 90; Globulin 3.1 g/dL (2.4-3.5); Glucose 175 mg/dL (80-115); Potassium 4.2 mmol/L (3.5-5.1); Protein, Total 6.4 g/dL (5.8-8.1); Sodium 139 mmol/L (136-145)
[2020-02-26 06:10] LABS: #Lymphocytes 0.4 thou/uL (1.20-3.40); #Monocytes 0.1 thou/uL (0.11-0.59); #Neutrophils 6.8 thou/uL (1.40-6.50); %Basophils 0.3 % (0.0-1.0); %Eosinophils 0.1 % (0.0-10.0); %Lymphocytes 4.9 % (21.0-51.0); %Monocytes 1.8 % (0.0-10.0); Hemoglobin 12.9 g/dL (14.0-18.0); Mean Corpuscular HGB CONC 33.5 g/dL (32.0-36.0); Mean Corpuscular Hemoglobin 29.6 pg (27.0-31.0); Mean Corpuscular Volume 88.3 fL (78.0-98.0); Mean Platelet Volume 8.8 fL (7.4-10.4); Platelet Count 156 thou/uL (130-400); RBC Distribution Width 13.5 % (11.5-14.5); Red Blood Cell (RBC) Count 4.37 mill/uL (4.70-6.10); White Blood Cell (WBC) Count 7.3 thou/uL (4.8-10.8)
[2020-02-26] MEDS: Loratadine 10 MG TAB PO SCH (08:53)
[2020-02-26] MEDS: Dexamethasone 4 MG TAB PO SCH (08:54)
[2020-02-26] MEDS: Aspirin 325 MG TAB PO SCH (08:54)
[2020-02-26] MEDS ORDERED: Enoxaparin Sodium 40 MG/0.4 ML SYRINGE SC SCH (09:00)
--- NOTE | 2020-02-26 09:16 | PDOC.HOSPP ---
- Subjective Encounter Date: 02/26/20 Encounter Time: 09:14 non-verbal Subjective: Continues to be SOB. Thinks he may feel slightly better since admission with the oxygen. Still dyspneic with sitting up in bed. Still has cough. - Objective Vital Signs & Weight: Vital Signs (12 hours) Temp Pulse Resp BP Pulse Ox 02/26/20 06:00 98.4 F 73 24 H 103/59 L 90 L 02/26/20 02:00 98.6 F 64 20 112/66 94 L 02/25/20 22:02 98.8 F 74 20 119/61 96 Weight Weight 224 lb I&O: 02/25/20 02/26/20 02/27/20 06:59 06:59 06:59 Intake Total 120 Output Total 750 Balance -630 Result Diagrams: 02/26/20 04:23 02/26/20 04:23 Hospitalist ROS - Medication Medications: Active Medications Generic Name Dose Route Start Last Admin Trade Name Freq PRN Reason Stop Dose Admin Acetaminophen 650 mg 02/25/20 18:02 02/26/20 04:29 Tylenol PO 650 mg Q4H PRN Administration Headache/Fever/Mild Pain (1-3) Albuterol Sulfate 2 puff 02/26/20 09:00 02/26/20 08:54 Proventil Hfa INH 2 inh Q4HR MARIAH Administration Aspirin 325 mg 02/26/20 09:00 02/26/20 08:54 Aspirin PO 325 mg DAILY MARIAH Administration Atorvastatin Calcium 40 mg 02/25/20 21:00 02/25/20 22:18 Lipitor PO 40 mg QPM MARIAH Administration Dexamethasone 6 mg 02/26/20 08:00 02/26/20 08:54 Decadron PO 6 mg QAM-WM MARIAH Administration Enoxaparin Sodium 40 mg 02/26/20 09:00 02/26/20 08:54 Lovenox SC 40 mg 0900 MARIAH Administration Gabapentin 300 mg 02/25/20 21:00 02/25/20 22:18 Neurontin PO 300 mg HS MARIAH Administration Loratadine 10 mg 02/26/20 09:00 02/26/20 08:53 Claritin PO 10 mg QAM MARIAH Administration Pantoprazole Sodium 40 mg 02/26/20 09:00 02/26/20 08:54 Protonix PO 40 mg DAILY MARIAH Administration Tamsulosin HCl 0.4 mg 02/25/20 21:00 02/25/20 22:18 Flomax PO 0.4 mg HS MARIAH Administration - Exam General Appearance: ill appearing Heart: RRR, no murmur, no gallops, no rubs, normal peripheral pulses Respiratory - other findings: Diffuse bilateral rales. Gastrointestinal: soft, non-tender, non-distended, normal bowel sounds, no palpable masses, no hepatomegaly, no splenomegaly, no bruit Extremities: no cyanosis, no clubbing, no edema Neurological: no focal deficits Musculoskeletal: generalized weakness Psychiatric: normal affect, normal behavior, A&O x 3 Hosp A/P (1) Acute hypoxemic respiratory failure Code(s): J96.01 - ACUTE RESPIRATORY FAILURE WITH HYPOXIA Status: Acute (2) COVID-19 Code(s): U07.1 - COVID-19 Status: Acute (3) Viral pneumonia Code(s): J12.9 - VIRAL PNEUMONIA, UNSPECIFIED Status: Acute (4) HTN (hypertension) Code(s): I10 - ESSENTIAL (PRIMARY) HYPERTENSION Status: Chronic Qualifiers: Hypertension type: essential hypertension Qualified Code(s): I10 - Essential (primary) hypertension (5) HLD (hyperlipidemia) Code(s): E78.5 - HYPERLIPIDEMIA, UNSPECIFIED Status: Acute - Plan Covid pneumonia with hypoxic respiratory failure: Oxygen demands have increased. Requiring 6lpm to keep sat at 90. Will continue with the supplemental oxygen, bronchodilators. Dexamethasone. Qualifies for Remdesivir. Requires > 4 lpm oxygen with increasing oxygen requirements and onset of symtoms about 5 days. Discussed the investigational nature of the drug and potential side-effects. He is amenable to treatment. Cleared with Pulm. Discussed with lab. HTN: Continuing home meds. HLD: Continue home meds.
[2020-02-26] MEDS ORDERED: Ascorbic Acid 500 mg Chewable Tablet PO SCH (10:00)
[2020-02-26] MEDS ORDERED: Non-Formulary Item 1 EACH in Sodium Chloride 0.9% 250 ML 210 ML IV SCH (11:00)
[2020-02-26] MEDS: Enoxaparin Sodium 40 MG/0.4 ML SYRINGE SC SCH (21:01)
[2020-02-26] MEDS: Gabapentin 300 MG CAP PO SCH (21:01)
[2020-02-26] MEDS: Tamsulosin HCl 0.4 MG CAP PO SCH (21:01)
[2020-02-26] MEDS: Atorvastatin Calcium 40 MG TAB PO SCH (21:01)
--- NOTE | 2020-02-26 23:12 | CON ---
DATE OF CONSULTATION: 02/26/2020 REASON FOR CONSULTATION: COVID infection. HISTORY OF PRESENT ILLNESS: A 64-year-old with history of GERD and hypertension prior CVA, who has a whole family infected by the COVID virus and tested positive today for admission. He was referred to the hospital, but he was not admitted because he was not hypoxemic, so he was sent home and now is back with worsening. He has been admitted yesterday and initial findings O2 saturations were 89 on room air and 91 on 2 L and pulse 106, he is breathing 30 times a minute, and BP 101/62. Mild respiratory distress. Abdomen is soft. Other findings included white cell count 7.4, hemoglobin 12.9, platelets 158 with 89% neutrophils. D-dimer 0.74. A pH of 7.45, pCO2 of 32, and PO2 of 59. Sodium 138 and creatinine 0.9. AST 41, albumin 3.6, ferritin 544, and CRP was 14.36. The patient is currently receiving Decadron, enoxaparin b.i.d. and remdesivir, feeling a little better, still tachypneic. No abdominal pain. Lost sense of smell. No sore throat. No headaches. No chest pain. No diarrhea. No genitourinary symptoms. PAST MEDICAL HISTORY: Hypertension, prior CVA, and GERD. 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 SOCIAL HISTORY: Never smoker, lives with family. ALLERGIES: NONE. FAMILY HISTORY: Remarkable for COVID infection in the entire family. CURRENT MEDICATIONS: 1. Ascorbic acid. 2. Proventil. 3. Aspirin. 4. Lipitor. 5. Vitamin D. 6. Decadron. 7. Lovenox. 8. Neurontin. 9. Remdesivir. 10. Protonix. 11. Flomax. 12. Zinc. PHYSICAL EXAMINATION: VITAL SIGNS: T-max 101.8. He has been afebrile since. Pulse now is down to 75; respiratory rate is around 20 to 22; O2 sats started 92, now they are 97 with 5 L nasal cannula. GENERAL: Awake and alert, little bit tachypneic, appears comfortable at rest. SKIN: Was not remarkable. No lymphadenopathy. HEENT: Ocular movements conjugate. Oral cavity normal. NECK: Supple. LUNGS: Symmetric air entry. No crackles or wheezing. HEART: S1 and S2. Regular rate. ABDOMEN: Soft, nondistended or nontender. No ascites. No bladder distention. EXTREMITIES: No joint inflammatory activity. NEURO: Nonfocal. Pulses 1+ in dorsalis pedis. He is awake, alert, and oriented. Speech is normal. Able to speak in full sentences. LABORATORY DATA: Sodium 138 and creatinine 0.9. White cell count 7.3. IMAGING STUDIES: Include a CT angio. There is patchy bilateral airspace disease in the chest x-ray and in the CT scan, but no evidence of pulmonary emboli, although technically the imaging study was suboptimal. ASSESSMENT: Hypertension, gastroesophageal reflux disease, prior cerebrovascular accident, COVID pneumonia requiring high levels of O2 administration per nasal cannula. The patient currently on Decadron and remdesivir. We will continue monitoring D-dimer, ferritin, and CRP every other day and go through the remdesivir protocol. Continue Lovenox. Job ID: [id number]
[2020-02-27] MEDS: Albuterol 200 PUFF (6.7GM INHALER) INH SCH ×6 (01:18→20:11)
[2020-02-27 05:17] LABS: ALT (SGPT) 81 U/L (8-55); AST (SGOT) 80 U/L (5-34); Albumin 3.2 g/dL (3.4-4.8); Alkaline Phosphatase 52 U/L (40-110); Bilirubin, Direct 0.4 mg/dL (0.1-0.3); Bilirubin, Total 0.7 mg/dL (0.2-1.2); Protein, Total 6.1 g/dL (5.8-8.1)
[2020-02-27] MEDS: Cholecalciferol 1,000 UNITS (25 MCG) TAB PO SCH (08:32)
[2020-02-27] MEDS: Zinc Sulfate 220 MG CAP PO SCH (08:33)
[2020-02-27] MEDS: Dexamethasone 4 MG TAB PO SCH (08:33)
[2020-02-27] MEDS: Enoxaparin Sodium 40 MG/0.4 ML SYRINGE SC SCH ×2 (08:33→19:49)
[2020-02-27] MEDS: Aspirin 325 MG TAB PO SCH (08:33)
[2020-02-27] MEDS: Loratadine 10 MG TAB PO SCH (08:33)
[2020-02-27] MEDS: Ascorbic Acid 500 mg Chewable Tablet PO SCH (08:33)
[2020-02-27] MEDS ORDERED: Sodium Chloride 0.45% 1,000 ML IV SCH (11:00)
[2020-02-27] MEDS: Non-Formulary Item 1 EACH in Sodium Chloride 0.9% 250 ML 230 ML IV SCH (11:54)
--- NOTE | 2020-02-27 15:33 | PDOC.HOSPP ---
- Subjective Encounter Date: 02/27/20 Subjective: Definitely feels like he is some better than he was when he presented. Still feels a little short of breath. - Objective Vital Signs & Weight: Vital Signs (12 hours) Temp Pulse Resp BP Pulse Ox 02/27/20 12:00 98.4 F 75 20 97/60 93 L 02/27/20 08:30 94 L 02/27/20 08:00 97.5 F L 65 20 93/61 94 L Weight Admit Weight 224 lb 14.4 oz Weight 224 lb 14.4 oz I&O: 02/26/20 02/27/20 02/28/20 06:59 06:59 06:59 Intake Total 120 300 Output Total 750 275 Balance -630 25 Result Diagrams: 02/26/20 04:23 02/26/20 04:23 Hospitalist ROS - Medication Medications: Active Medications Generic Name Dose Route Start Last Admin Trade Name Freq PRN Reason Stop Dose Admin Acetaminophen 650 mg 02/25/20 18:02 02/26/20 04:29 Tylenol PO 650 mg Q4H PRN Administration Headache/Fever/Mild Pain (1-3) Albuterol Sulfate 2 puff 02/26/20 09:00 02/27/20 12:04 Proventil Hfa INH 2 inh Q4HR MARIAH Administration Ascorbic Acid 1,000 mg 02/27/20 09:00 02/27/20 08:33 Vitamin C PO 1,000 mg DAILY MARIAH Administration Aspirin 325 mg 02/26/20 09:00 02/27/20 08:33 Aspirin PO 325 mg DAILY MARIAH Administration Atorvastatin Calcium 40 mg 02/25/20 21:00 02/26/20 21:01 Lipitor PO 40 mg QPM MARIAH Administration Cholecalciferol 2,000 units 02/27/20 09:00 02/27/20 08:32 Vitamin D3 PO 2,000 units DAILY MARIAH Administration Dexamethasone 6 mg 02/26/20 08:00 02/27/20 08:33 Decadron PO 6 mg QAM-WM MARIAH Administration Enoxaparin Sodium 40 mg 02/26/20 21:00 02/27/20 08:33 Lovenox SC 40 mg BID MARIAH Administration Non-Formulary Medication 1 250 mls @ 250 mls/hr 02/27/20 11:00 02/27/20 11:54 each/ Sodium Chloride IV 03/01/20 11:59 250 mls Q24H MARIAH Administration Sodium Chloride 1,000 mls @ 100 mls/hr 02/27/20 11:00 02/27/20 11:54 1/2 Normal Saline IV 02/27/20 20:59 1,000 mls .Q10H MARIAH Administration Loratadine 10 mg 02/26/20 09:00 02/27/20 08:33 Claritin PO 10 mg QAM MARIAH Administration Pantoprazole Sodium 40 mg 02/26/20 09:00 02/27/20 08:33 Protonix PO 40 mg DAILY MARIAH Administration Sodium Chloride 10 ml 02/25/20 18:02 02/26/20 21:01 Flush - Normal Saline IVF 10 ml PRN PRN Administration Saline Flush Tamsulosin HCl 0.4 mg 02/25/20 21:00 02/26/20 21:01 Flomax PO 0.4 mg HS MARIAH Administration Zinc Sulfate 220 mg 02/27/20 09:00 02/27/20 08:33 Zinc Sulfate PO 220 mg DAILY MARIAH Administration - Exam General Appearance: NAD, awake alert Neck: supple, symmetric, no JVD, no thyromegaly, no lymphadenopathy, no carotid bruit Heart: RRR, no murmur, no gallops, no rubs, normal peripheral pulses Respiratory: no wheezes Respiratory - other findings: Fine scattered rales bilaterally. Gastrointestinal: soft, non-tender, non-distended, normal bowel sounds, no palpable masses, no hepatomegaly, no splenomegaly, no bruit Extremities: no cyanosis, no clubbing, no edema Skin: normal turgor Neurological: no focal deficits Musculoskeletal: normal tone, generalized weakness Psychiatric: normal affect, normal behavior, A&O x 3 Hosp A/P (1) Acute hypoxemic respiratory failure Code(s): J96.01 - ACUTE RESPIRATORY FAILURE WITH HYPOXIA Status: Acute (2) COVID-19 Code(s): U07.1 - COVID-19 Status: Acute (3) Viral pneumonia Code(s): J12.9 - VIRAL PNEUMONIA, UNSPECIFIED Status: Acute (4) HTN (hypertension) Code(s): I10 - ESSENTIAL (PRIMARY) HYPERTENSION Status: Chronic Qualifiers: Hypertension type: essential hypertension Qualified Code(s): I10 - Essential (primary) hypertension (5) HLD (hyperlipidemia) Code(s): E78.5 - HYPERLIPIDEMIA, UNSPECIFIED Status: Acute - Plan Covid pneumonia with hypoxic respiratory failure: Seems to be stable around 3.5 L of nasal cannula oxygen. Will continue with the supplemental oxygen, bronchodilators. Dexamethasone, Remdesivir. Appreciate ID consult. Today is 2 of 5. HTN: Continuing home meds. HLD: Continue home meds. Peripheral neuropathy: Patient reports he takes gabapentin at home for severe peripheral neuropathy. At one point he was taking 300 mg tablets 1 in the morning and 2 at night. Somehow that fell off and he went back to 1 daily. It is giving him a lot of pain presently. I will increase that back to his prior dosing regimen.
[2020-02-27] MEDS: Tamsulosin HCl 0.4 MG CAP PO SCH (19:49)
[2020-02-27] MEDS: Gabapentin 300 MG CAP PO SCH (19:49)
[2020-02-27] MEDS: Atorvastatin Calcium 40 MG TAB PO SCH (19:49)
[2020-02-28] MEDS: Albuterol 200 PUFF (6.7GM INHALER) INH SCH ×6 (00:45→19:04)
[2020-02-28 05:12] LABS: ALT (SGPT) 108 U/L (8-55); AST (SGOT) 75 U/L (5-34); Albumin 3.1 g/dL (3.4-4.8); Alkaline Phosphatase 55 U/L (40-110); Bilirubin, Direct 0.4 mg/dL (0.1-0.3); Bilirubin, Total 0.8 mg/dL (0.2-1.2)
[2020-02-28] MEDS: Dexamethasone 4 MG TAB PO SCH (08:53)
[2020-02-28] MEDS: Cholecalciferol 1,000 UNITS (25 MCG) TAB PO SCH (08:53)
[2020-02-28] MEDS: Ascorbic Acid 500 mg Chewable Tablet PO SCH (08:54)
[2020-02-28] MEDS: Enoxaparin Sodium 40 MG/0.4 ML SYRINGE SC SCH (08:54)
[2020-02-28] MEDS: Zinc Sulfate 220 MG CAP PO SCH (08:54)
[2020-02-28] MEDS: Gabapentin 300 MG CAP PO SCH ×2 (08:54→19:04)
[2020-02-28] MEDS: Aspirin 325 MG TAB PO SCH (08:54)
[2020-02-28] MEDS: Loratadine 10 MG TAB PO SCH (08:54)
[2020-02-28] MEDS: Non-Formulary Item 1 EACH in Sodium Chloride 0.9% 250 ML 230 ML IV SCH (12:10)
--- NOTE | 2020-02-28 18:01 | PDOC.HOSPP ---
- Subjective Encounter Date: 02/28/20 Subjective: Doing better overall. Neuropathy feels better. He is breathing a little better. Some small amount of blood tinged sputum. - Objective Vital Signs & Weight: Vital Signs (12 hours) Temp Pulse Resp BP Pulse Ox 02/28/20 12:00 98.0 F 72 20 91/60 92 L 02/28/20 08:00 98.7 F 59 L 20 118/72 95 Weight Admit Weight 224 lb 14.4 oz Weight 224 lb 14.4 oz I&O: 02/27/20 02/28/20 02/29/20 06:59 06:59 06:59 Intake Total 300 1340 1600 Output Total 275 1100 500 Balance 25 240 1100 Result Diagrams: 02/26/20 04:23 02/26/20 04:23 Hospitalist ROS - Medication Medications: Active Medications Generic Name Dose Route Start Last Admin Trade Name Freq PRN Reason Stop Dose Admin Acetaminophen 650 mg 02/25/20 18:02 02/26/20 04:29 Tylenol PO 650 mg Q4H PRN Administration Headache/Fever/Mild Pain (1-3) Albuterol Sulfate 2 puff 02/26/20 09:00 02/28/20 16:38 Proventil Hfa INH 2 inh Q4HR MARIAH Administration Ascorbic Acid 1,000 mg 02/27/20 09:00 02/28/20 08:54 Vitamin C PO 1,000 mg DAILY MARIAH Administration Aspirin 325 mg 02/26/20 09:00 02/28/20 08:54 Aspirin PO 325 mg DAILY MARIAH Administration Atorvastatin Calcium 40 mg 02/25/20 21:00 02/27/20 19:49 Lipitor PO 40 mg QPM MARIAH Administration Cholecalciferol 2,000 units 02/27/20 09:00 02/28/20 08:53 Vitamin D3 PO 2,000 units DAILY MARIAH Administration Dexamethasone 6 mg 02/26/20 08:00 02/28/20 08:53 Decadron PO 6 mg QAM-WM MARIAH Administration Gabapentin 600 mg 02/27/20 21:00 02/27/20 19:49 Neurontin PO 600 mg HS MARIAH Administration Gabapentin 300 mg 02/28/20 09:00 02/28/20 08:54 Neurontin PO 300 mg DAILY MARIAH Administration Non-Formulary Medication 1 250 mls @ 250 mls/hr 02/27/20 11:00 02/28/20 12:10 each/ Sodium Chloride IV 03/01/20 11:59 250 mls Q24H MARIAH Administration Loratadine 10 mg 02/26/20 09:00 02/28/20 08:54 Claritin PO 10 mg QAM MARIAH Administration Pantoprazole Sodium 40 mg 02/26/20 09:00 02/28/20 08:53 Protonix PO 40 mg DAILY MARIAH Administration Sodium Chloride 10 ml 02/25/20 18:02 02/26/20 21:01 Flush - Normal Saline IVF 10 ml PRN PRN Administration Saline Flush Tamsulosin HCl 0.4 mg 02/25/20 21:00 02/27/20 19:49 Flomax PO 0.4 mg HS MARIAH Administration Zinc Sulfate 220 mg 02/27/20 09:00 02/28/20 08:54 Zinc Sulfate PO 220 mg DAILY MARIAH Administration - Exam General Appearance: NAD, awake alert Heart: RRR, no murmur, no gallops, no rubs, normal peripheral pulses Respiratory: no wheezes, no ronchi, normal chest expansion, no tachypnea, rales Gastrointestinal: soft, non-tender, non-distended, normal bowel sounds, no palpable masses, no hepatomegaly, no splenomegaly, no bruit Extremities: no cyanosis, no clubbing, no edema Skin: normal turgor, no lesions, no rashes Neurological: no focal deficits Musculoskeletal: normal tone Psychiatric: normal affect, normal behavior, A&O x 3 Hosp A/P (1) Acute hypoxemic respiratory failure Code(s): J96.01 - ACUTE RESPIRATORY FAILURE WITH HYPOXIA Status: Acute (2) COVID-19 Code(s): U07.1 - COVID-19 Status: Acute (3) Viral pneumonia Code(s): J12.9 - VIRAL PNEUMONIA, UNSPECIFIED Status: Acute (4) HTN (hypertension) Code(s): I10 - ESSENTIAL (PRIMARY) HYPERTENSION Status: Chronic Qualifiers: Hypertension type: essential hypertension Qualified Code(s): I10 - Essential (primary) hypertension (5) HLD (hyperlipidemia) Code(s): E78.5 - HYPERLIPIDEMIA, UNSPECIFIED Status: Acute (6) Peripheral neuropathy Code(s): G62.9 - POLYNEUROPATHY, UNSPECIFIED Status: Acute (7) History of CVA (cerebrovascular accident) Code(s): Z86.73 - PRSNL HX OF TIA (TIA), AND CEREB INFRC W/O RESID DEFICITS Status: Acute - Plan Covid pneumonia with hypoxic respiratory failure: Seems to be stable around 3.5 L of nasal cannula oxygen. Will continue with the supplemental oxygen, bronchodilators. Dexamethasone, Remdesivir. Appreciate ID consult. Today is 3 of 5. Given the fact that he is on full-dose aspirin for hx of CVA, his D-dimer is almost normalized and he is having mild hemoptysis, I will reduce the Lovenox back to standard prophylaxis dosing. HTN: Continuing home meds. HLD: Continue home meds. Peripheral neuropathy: Increased Gabapentin and that is helping. Hx of CVA.
[2020-02-28] MEDS: Tamsulosin HCl 0.4 MG CAP PO SCH (19:04)
[2020-02-28] MEDS: Atorvastatin Calcium 40 MG TAB PO SCH (19:04)
[2020-02-29] MEDS: Albuterol 200 PUFF (6.7GM INHALER) INH SCH ×7 (00:20→22:38)
[2020-02-29 06:04] LABS: ALT (SGPT) 122 U/L (8-55); AST (SGOT) 63 U/L (5-34); Albumin 3.1 g/dL (3.4-4.8); Alkaline Phosphatase 53 U/L (40-110); Bilirubin, Direct 0.5 mg/dL (0.1-0.3); Protein, Total 5.9 g/dL (5.8-8.1)
[2020-02-29] MEDS: Dexamethasone 4 MG TAB PO SCH (10:31)
[2020-02-29] MEDS: Ascorbic Acid 500 mg Chewable Tablet PO SCH (10:31)
[2020-02-29] MEDS: Aspirin 325 MG TAB PO SCH (10:31)
[2020-02-29] MEDS: Cholecalciferol 1,000 UNITS (25 MCG) TAB PO SCH (10:31)
[2020-02-29] MEDS: Gabapentin 300 MG CAP PO SCH ×2 (10:32→19:30)
[2020-02-29] MEDS: Loratadine 10 MG TAB PO SCH (10:32)
[2020-02-29] MEDS: Enoxaparin Sodium 40 MG/0.4 ML SYRINGE SC SCH (10:32)
[2020-02-29] MEDS: Zinc Sulfate 220 MG CAP PO SCH (10:33)
[2020-02-29] MEDS: Non-Formulary Item 1 EACH in Sodium Chloride 0.9% 250 ML 230 ML IV SCH (12:50)
--- NOTE | 2020-02-29 16:12 | PRG ---
DATE OF SERVICE: 02/29/2020 SUBJECTIVE: The patient appears comfortable at rest. No chest pain. Maybe mild cough. No abdominal pain or diarrhea. OBJECTIVE: VITAL SIGNS: Temperature max 98.7, blood pressure 110/69, pulse 67, respirations 20, and O2 saturations 98. LUNGS: Symmetric. Clear breath sounds. HEART: S1 and S2, regular rate. ABDOMEN: Soft and not distended. NEUROLOGIC: Nonfocal. LABORATORY DATA: Bilirubin 0.5, AST 63, ALT 122, and D-dimer is down to 0.58. CRP is down to 4. Ferritin is down to 480. ASSESSMENT AND DISCUSSION: Hypertension, gastroesophageal reflux disease, prior cerebrovascular accident, COVID pneumonia, remdesivir and Decadron started. O2 supplementation is down to 3.5 L/minute and saturating at 98, so this seems to be improvement in the inflammatory markers and the O2 supplementation requirements. Job ID: [id number]
[2020-02-29 16:20] LABS: Anion Gap 10 mmol/L (10-20); BUN (Urea Nitrogen) 24 mg/dL (8.4-25.7); Calc. Creatinine Clearance 149 mL/min (70-130); Carbon Dioxide 24 mmol/L (23-31); Chloride 109 mmol/L (98-107); Estimated GFR-MDRD Greater than 90; Glucose 154 mg/dL (80-115); Potassium 3.8 mmol/L (3.5-5.1); Sodium 139 mmol/L (136-145)
[2020-02-29] MEDS: Atorvastatin Calcium 40 MG TAB PO SCH (19:30)
[2020-02-29] MEDS: Tamsulosin HCl 0.4 MG CAP PO SCH (19:30)
--- NOTE | 2020-02-29 20:35 | PDOC.HOSPP ---
- Subjective Encounter Date: 02/29/20 Encounter Time: 16:00 Subjective: Patient seen and examined for resp failure. Feeling gen weak. Mild cough. No new complaints. No overnight events - Objective Vital Signs & Weight: Vital Signs (12 hours) Temp Pulse Resp BP BP Pulse Ox 02/29/20 19:38 98.5 F 101 H 18 87/55 L 94 L 02/29/20 17:10 98.4 F 76 18 109/68 94 L 02/29/20 12:55 98.2 F 67 20 110/69 98 02/29/20 10:35 98.7 F 52 L 20 131/81 93 L Weight Admit Weight 224 lb 14.4 oz Weight 224 lb 14.4 oz I&O: 02/28/20 02/29/20 03/01/20 06:59 06:59 06:59 Intake Total 1340 2140 1350 Output Total 1100 1700 1220 Balance 240 440 130 Result Diagrams: 02/26/20 04:23 02/29/20 15:30 Additional Labs: Laboratory Tests 02/25/20 02/28/20 02/28/20 15:50 04:22 04:22 D-Dimer ABG pCO2 32.6 L ABG pO2 59.4 L* ABG O2 Sat (Measured) 91.2 L Ferritin 480.90 H C-Reactive Protein 4.07 H 02/28/20 04:22 D-Dimer 0.58 H ABG pCO2 ABG pO2 ABG O2 Sat (Measured) Ferritin C-Reactive Protein EKG Reviewed by me: Yes (Tele SR) Hospitalist ROS - Review of Systems Respiratory: reports: cough, dry, SOB with excertion. denies: shortness of breath, hemoptysis, pleuritic pain, sputum, wheezing, other Cardiovascular: denies: chest pain, palpitations, orthopnea, paroxysmal noc. dyspnea, edema, light headedness, other - Medication Medications: Active Medications Generic Name Dose Route Start Last Admin Trade Name Freq PRN Reason Stop Dose Admin Acetaminophen 650 mg 02/25/20 18:02 02/26/20 04:29 Tylenol PO 650 mg Q4H PRN Administration Headache/Fever/Mild Pain (1-3) Albuterol Sulfate 2 puff 02/29/20 06:30 02/29/20 18:45 Proventil Hfa INH Not Given [id number] MARIAH Ascorbic Acid 1,000 mg 02/27/20 09:00 02/29/20 10:31 Vitamin C PO 1,000 mg DAILY MARIAH Administration Aspirin 325 mg 02/26/20 09:00 02/29/20 10:31 Aspirin PO 325 mg DAILY MARIAH Administration Atorvastatin Calcium 40 mg 02/25/20 21:00 02/29/20 19:30 Lipitor PO 40 mg QPM MARIAH Administration Cholecalciferol 2,000 units 02/27/20 09:00 02/29/20 10:31 Vitamin D3 PO 2,000 units DAILY MARIAH Administration Dexamethasone 6 mg 02/26/20 08:00 02/29/20 10:31 Decadron PO 6 mg QAM-WM MARIAH Administration Enoxaparin Sodium 40 mg 02/29/20 09:00 02/29/20 10:32 Lovenox SC 40 mg DAILY MARIAH Administration Gabapentin 600 mg 02/27/20 21:00 02/29/20 19:30 Neurontin PO 600 mg HS MARIAH Administration Gabapentin 300 mg 02/28/20 09:00 02/29/20 10:32 Neurontin PO 300 mg DAILY MARIAH Administration Non-Formulary Medication 1 250 mls @ 250 mls/hr 02/27/20 11:00 02/29/20 12:50 each/ Sodium Chloride IV 03/01/20 11:59 250 mls Q24H MARIAH Administration Loratadine 10 mg 02/26/20 09:00 02/29/20 10:32 Claritin PO 10 mg QAM MARIAH Administration Pantoprazole Sodium 40 mg 02/26/20 09:00 02/29/20 10:32 Protonix PO 40 mg DAILY MARIAH Administration Sodium Chloride 10 ml 02/25/20 18:02 02/29/20 19:30 Flush - Normal Saline IVF 10 ml PRN PRN Administration Saline Flush Tamsulosin HCl 0.4 mg 02/25/20 21:00 02/29/20 19:30 Flomax PO 0.4 mg HS MARIAH Administration Zinc Sulfate 220 mg 02/27/20 09:00 02/29/20 10:33 Zinc Sulfate PO 220 mg DAILY MARIAH Administration - Exam General Appearance: NAD Neck: supple, no JVD Heart: RRR, no gallops Respiratory: no wheezes, rales, rhonchi Gastrointestinal: non-tender, non-distended, no guarding, no rigidity Psychiatric: normal affect, A&O x 3 Hosp A/P - Plan DVT proph w/lovenox Acute hypoxemic respiratory failure due to COVID-19 Pneumonia -on Remdesivir and PO Dexamethasone Gen weakness due to above HTN HLD P neuropathy -Gabapentin dose increased Obesity BMI 33.3 PLAN: Cont O2 supp Cont Dexamethasone with Remdesivir AM labs Ambulate Wean O2 DC planning when stable
[2020-03-01] MEDS: Albuterol 200 PUFF (6.7GM INHALER) INH SCH ×6 (02:24→23:04)
[2020-03-01 06:07] LABS: ALT (SGPT) 110 U/L (8-55); AST (SGOT) 41 U/L (5-34); Alkaline Phosphatase 52 U/L (40-110); Anion Gap 10 mmol/L (10-20); BUN (Urea Nitrogen) 21 mg/dL (8.4-25.7); Bilirubin, Total 0.9 mg/dL (0.2-1.2); CRP (Inflammatory) 1.32 mg/dL (= or < 0.5); Calc. Creatinine Clearance 142 mL/min (70-130); Carbon Dioxide 23 mmol/L (23-31); Chloride 108 mmol/L (98-107); Estimated GFR-MDRD Greater than 90; Globulin 2.7 g/dL (2.4-3.5); Glucose 153 mg/dL (80-115); Protein, Total 5.7 g/dL (5.8-8.1); Sodium 137 mmol/L (136-145)
[2020-03-01 06:38] LABS: Hemoglobin 12.5 g/dL (14.0-18.0); Mean Corpuscular HGB CONC 32.3 g/dL (32.0-36.0); Mean Corpuscular Hemoglobin 28.4 pg (27.0-31.0); Mean Platelet Volume 8.5 fL (7.4-10.4); Platelet Count 260 thou/uL (130-400); RBC Distribution Width 13.3 % (11.5-14.5); Red Blood Cell (RBC) Count 4.39 mill/uL (4.70-6.10)
[2020-03-01 08:03] LABS: Band 4 % (5-11); Burr Cells SLIGHT = 2-5 cells (100X) (0-1/hpf); Lymphocytes 10 % (21-51); MDiff Complete? YES; Metamyelocyte 1 % (0-0); Monocytes 10 % (0-10); Neutrophil 75 % (42-75); Platelet Morphology Comment Appears Adequate; Polychromasia SLIGHT = 2-3 cells (100X) (0-2/hpf)
[2020-03-01] MEDS: Enoxaparin Sodium 40 MG/0.4 ML SYRINGE SC SCH (08:46)
[2020-03-01] MEDS: Zinc Sulfate 220 MG CAP PO SCH (08:47)
[2020-03-01] MEDS: Cholecalciferol 1,000 UNITS (25 MCG) TAB PO SCH (08:48)
[2020-03-01] MEDS: Dexamethasone 4 MG TAB PO SCH (08:48)
[2020-03-01] MEDS: Loratadine 10 MG TAB PO SCH (08:49)
[2020-03-01] MEDS: Ascorbic Acid 500 mg Chewable Tablet PO SCH (08:49)
[2020-03-01] MEDS: Aspirin 325 MG TAB PO SCH (08:49)
[2020-03-01] MEDS: Gabapentin 300 MG CAP PO SCH ×2 (08:50→21:05)
[2020-03-01] MEDS: Non-Formulary Item 1 EACH in Sodium Chloride 0.9% 250 ML 230 ML IV SCH (12:05)
[2020-03-01 12:25] VITALS: BMI 32.8
--- NOTE | 2020-03-01 20:44 | PDOC.HOSPP ---
- Subjective Encounter Date: 03/01/20 Encounter Time: 15:00 Subjective: Patient seen and examined for resp failure. Feeling better. No new complaints. No overnight events - Objective Vital Signs & Weight: Vital Signs (12 hours) Temp Pulse Resp BP BP BP Pulse Ox 03/01/20 16:00 98 F 57 L 18 111/76 95 03/01/20 12:00 96.8 F L 70 18 87/50 L 110/70 98 Weight Admit Weight 224 lb 14.4 oz Weight 221 lb 11.2 oz I&O: 02/29/20 03/01/20 03/02/20 06:59 06:59 06:59 Intake Total 2140 1350 1960 Output Total 1700 1220 2275 Balance 440 130 -315 Result Diagrams: 03/01/20 05:30 03/01/20 05:30 EKG Reviewed by me: Yes (Tele SR) Hospitalist ROS - Review of Systems Respiratory: reports: cough, SOB with excertion. denies: dry, shortness of breath, hemoptysis, pleuritic pain, sputum, wheezing, other Cardiovascular: denies: chest pain, palpitations, orthopnea, paroxysmal noc. dyspnea, edema, light headedness, other Gastrointestinal: denies: nausea, vomiting, abdominal pain, diarrhea, constipation, melena, hematochezia, other - Medication Medications: Active Medications Generic Name Dose Route Start Last Admin Trade Name Freq PRN Reason Stop Dose Admin Acetaminophen 650 mg 02/25/20 18:02 02/26/20 04:29 Tylenol PO 650 mg Q4H PRN Administration Headache/Fever/Mild Pain (1-3) Albuterol Sulfate 2 puff 02/29/20 06:30 03/01/20 15:01 Proventil Hfa INH 2 puff [id number] MARIAH Administration Ascorbic Acid 1,000 mg 02/27/20 09:00 03/01/20 08:49 Vitamin C PO 1,000 mg DAILY MARIAH Administration Aspirin 325 mg 02/26/20 09:00 03/01/20 08:49 Aspirin PO 325 mg DAILY MARIAH Administration Atorvastatin Calcium 40 mg 02/25/20 21:00 02/29/20 19:30 Lipitor PO 40 mg QPM MARIAH Administration Cholecalciferol 2,000 units 02/27/20 09:00 03/01/20 08:48 Vitamin D3 PO 2,000 units DAILY MARIAH Administration Dexamethasone 6 mg 02/26/20 08:00 03/01/20 08:48 Decadron PO 6 mg QAM-WM MARIAH Administration Enoxaparin Sodium 40 mg 02/29/20 09:00 03/01/20 08:46 Lovenox SC 40 mg DAILY MARIAH Administration Gabapentin 600 mg 02/27/20 21:00 02/29/20 19:30 Neurontin PO 600 mg HS MARIAH Administration Gabapentin 300 mg 02/28/20 09:00 03/01/20 08:50 Neurontin PO 300 mg DAILY MARIAH Administration Loratadine 10 mg 02/26/20 09:00 03/01/20 08:49 Claritin PO 10 mg QAM MARIAH Administration Pantoprazole Sodium 40 mg 02/26/20 09:00 03/01/20 08:49 Protonix PO 40 mg DAILY MARIAH Administration Sodium Chloride 10 ml 02/25/20 18:02 02/29/20 19:30 Flush - Normal Saline IVF 10 ml PRN PRN Administration Saline Flush Tamsulosin HCl 0.4 mg 02/25/20 21:00 02/29/20 19:30 Flomax PO 0.4 mg HS MARIAH Administration Zinc Sulfate 220 mg 02/27/20 09:00 03/01/20 08:47 Zinc Sulfate PO 220 mg DAILY MARIAH Administration - Exam General Appearance: NAD Neck: supple, no JVD Heart: no murmur, no rubs Respiratory: no wheezes, no ronchi Gastrointestinal: non-tender, non-distended, no palpable masses Extremities: no cyanosis Hosp A/P - Plan DVT proph w/lovenox, DVT proph w/SCDs Acute hypoxemic respiratory failure due to COVID-19 Pneumonia -s/p Remdesivir -on PO Dexamethasone Gen weakness due to above HTN HLD P neuropathy Obesity BMI 33.3 PLAN: Cont O2 supp Cont Dexamethasone Completed Remdesivir Ambulate AM labs
[2020-03-01] MEDS: Tamsulosin HCl 0.4 MG CAP PO SCH (21:05)
[2020-03-01] MEDS: Atorvastatin Calcium 40 MG TAB PO SCH (21:05)
[2020-03-02] MEDS: Albuterol 200 PUFF (6.7GM INHALER) INH SCH ×6 (02:41→23:50)
[2020-03-02 05:08] LABS: Band 2 % (5-11); Hemoglobin 12.9 g/dL (14.0-18.0); Hypochromia SLIGHT = 6-15 cells (100X) (0-5/hpf); Lymphocytes 14 % (21-51); MDiff Complete? YES; Mean Corpuscular HGB CONC 32.7 g/dL (32.0-36.0); Mean Corpuscular Hemoglobin 29.1 pg (27.0-31.0); Mean Corpuscular Volume 88.9 fL (78.0-98.0); Mean Platelet Volume 8.4 fL (7.4-10.4); Monocytes 5 % (0-10); Neutrophil 79 % (42-75); Platelet Count 280 thou/uL (130-400); Platelet Morphology Comment Appears Adequate; RBC Distribution Width 13.1 % (11.5-14.5); Red Blood Cell (RBC) Count 4.44 mill/uL (4.70-6.10); White Blood Cell (WBC) Count 9.9 thou/uL (4.8-10.8)
[2020-03-02 05:10] LABS: ALT (SGPT) 95 U/L (8-55); AST (SGOT) 29 U/L (5-34); Alkaline Phosphatase 57 U/L (40-110); Anion Gap 12 mmol/L (10-20); BUN (Urea Nitrogen) 19 mg/dL (8.4-25.7); Bilirubin, Total 0.9 mg/dL (0.2-1.2); Calc. Creatinine Clearance 131 mL/min (70-130); Calcium 7.9 mg/dL (7.8-10.44); Carbon Dioxide 22 mmol/L (23-31); Chloride 106 mmol/L (98-107); Estimated GFR-MDRD Greater than 90; Globulin 2.7 g/dL (2.4-3.5); Glucose 149 mg/dL (80-115); Potassium 3.8 mmol/L (3.5-5.1); Protein, Total 5.7 g/dL (5.8-8.1); Sodium 136 mmol/L (136-145)
--- NOTE | 2020-03-02 07:21 | PDOC.HOSPP ---
- Subjective Encounter Date: 03/02/20 Encounter Time: 14:00 Subjective: Patient seen and examined for resp failure. No new complaints. No overnight events - Objective Vital Signs & Weight: Vital Signs (12 hours) Temp Pulse Resp BP Pulse Ox 03/02/20 02:40 97.8 F 58 L 18 119/73 96 03/02/20 02:30 99 03/01/20 22:35 98.7 F 56 L 18 125/69 99 03/01/20 21:13 98.5 F 58 L 22 H 111/72 96 Weight Admit Weight 224 lb 14.4 oz Weight 217 lb 9 oz I&O: 03/01/20 03/02/20 03/03/20 06:59 06:59 06:59 Intake Total 1350 2390 Output Total 1220 3325 Balance 130 -935 Result Diagrams: 03/02/20 04:23 03/02/20 04:23 EKG Reviewed by me: Yes (Tele SR) Hospitalist ROS - Review of Systems Respiratory: reports: cough, dry, SOB with excertion. denies: shortness of breath, hemoptysis, pleuritic pain, sputum, wheezing, other Cardiovascular: denies: chest pain, palpitations, orthopnea, paroxysmal noc. dyspnea, edema, light headedness, other - Medication Medications: Active Medications Generic Name Dose Route Start Last Admin Trade Name Freq PRN Reason Stop Dose Admin Acetaminophen 650 mg 02/25/20 18:02 02/26/20 04:29 Tylenol PO 650 mg Q4H PRN Administration Headache/Fever/Mild Pain (1-3) Albuterol Sulfate 2 puff 02/29/20 06:30 03/02/20 06:40 Proventil Hfa INH 2 puff [id number] MARIAH Administration Ascorbic Acid 1,000 mg 02/27/20 09:00 03/01/20 08:49 Vitamin C PO 1,000 mg DAILY MARIAH Administration Aspirin 325 mg 02/26/20 09:00 03/01/20 08:49 Aspirin PO 325 mg DAILY MARIAH Administration Atorvastatin Calcium 40 mg 02/25/20 21:00 03/01/20 21:05 Lipitor PO 40 mg QPM MARIAH Administration Cholecalciferol 2,000 units 02/27/20 09:00 03/01/20 08:48 Vitamin D3 PO 2,000 units DAILY MARIAH Administration Dexamethasone 6 mg 02/26/20 08:00 03/01/20 08:48 Decadron PO 6 mg QAM-WM MARIAH Administration Enoxaparin Sodium 40 mg 02/29/20 09:00 03/01/20 08:46 Lovenox SC 40 mg DAILY MARIAH Administration Gabapentin 600 mg 02/27/20 21:00 03/01/20 21:05 Neurontin PO 600 mg HS MARIAH Administration Gabapentin 300 mg 02/28/20 09:00 03/01/20 08:50 Neurontin PO 300 mg DAILY MARIAH Administration Loratadine 10 mg 02/26/20 09:00 03/01/20 08:49 Claritin PO 10 mg QAM MARIAH Administration Pantoprazole Sodium 40 mg 02/26/20 09:00 03/01/20 08:49 Protonix PO 40 mg DAILY MARIAH Administration Sodium Chloride 10 ml 02/25/20 18:02 03/01/20 21:05 Flush - Normal Saline IVF 10 ml PRN PRN Administration Saline Flush Tamsulosin HCl 0.4 mg 02/25/20 21:00 03/01/20 21:05 Flomax PO 0.4 mg HS MARIAH Administration Zinc Sulfate 220 mg 02/27/20 09:00 03/01/20 08:47 Zinc Sulfate PO 220 mg DAILY MARIAH Administration - Exam General Appearance: NAD Neck: supple, no JVD Heart: RRR, no gallops Respiratory: no wheezes, rhonchi Gastrointestinal: non-tender, normal bowel sounds Extremities: no cyanosis, no clubbing Neurological: no new deficit Psychiatric: normal affect, A&O x 3 Hosp A/P - Plan respiratory therapy, DVT proph w/lovenox, DVT proph w/SCDs Acute hypoxemic respiratory failure due to COVID-19 Pneumonia -completed Remdesivir -on PO Dexamethasone Gen weakness due to above HTN HLD P neuropathy Obesity BMI 33.3 Physical deconditioning BPH PLAN: Cont O2 supp Cont Dexamethasone Cont PPI Cont MDIs Ambulate AM labs including inflammatory markers Still on 3.5 l O2 - DC home when ok with ID Will arrange for home O2
[2020-03-02] MEDS: Zinc Sulfate 220 MG CAP PO SCH (09:16)
[2020-03-02] MEDS: Enoxaparin Sodium 40 MG/0.4 ML SYRINGE SC SCH (09:16)
[2020-03-02] MEDS: Ascorbic Acid 500 mg Chewable Tablet PO SCH (09:17)
[2020-03-02] MEDS: Cholecalciferol 1,000 UNITS (25 MCG) TAB PO SCH (09:17)
[2020-03-02] MEDS: Loratadine 10 MG TAB PO SCH (09:17)
[2020-03-02] MEDS: Gabapentin 300 MG CAP PO SCH ×2 (09:17→20:02)
[2020-03-02] MEDS: Aspirin 325 MG TAB PO SCH (09:17)
[2020-03-02] MEDS: Dexamethasone 4 MG TAB PO SCH (09:17)
[2020-03-02] MEDS: Tamsulosin HCl 0.4 MG CAP PO SCH (20:02)
[2020-03-02] MEDS: Atorvastatin Calcium 40 MG TAB PO SCH (20:02)
[2020-03-03] MEDS: Albuterol 200 PUFF (6.7GM INHALER) INH SCH ×4 (03:31→14:10)
[2020-03-03 05:52] LABS: Band 7 % (5-11); Crenated RBC SLIGHT = 1-5 cells (100X) (None Seen); Elliptocytes SLIGHT = 2-5 cells (100X) (0-1/hpf); Hemoglobin 12.7 g/dL (14.0-18.0); Lymphocytes 7 % (21-51); MDiff Complete? YES; Mean Corpuscular HGB CONC 32.5 g/dL (32.0-36.0); Mean Corpuscular Hemoglobin 28.4 pg (27.0-31.0); Mean Corpuscular Volume 87.4 fL (78.0-98.0); Mean Platelet Volume 8.3 fL (7.4-10.4); Metamyelocyte 5 % (0-0); Monocytes 8 % (0-10); Myelocyte 1 % (0-0); Neutrophil 72 % (42-75); Platelet Count 317 thou/uL (130-400); Platelet Morphology Comment Appears Adequate; RBC Distribution Width 13.2 % (11.5-14.5); Red Blood Cell (RBC) Count 4.46 mill/uL (4.70-6.10); White Blood Cell (WBC) Count 10.1 thou/uL (4.8-10.8)
[2020-03-03 06:00] LABS: ALT (SGPT) 76 U/L (8-55); AST (SGOT) 18 U/L (5-34); Albumin 2.9 g/dL (3.4-4.8); Alkaline Phosphatase 52 U/L (40-110); Anion Gap 9 mmol/L (10-20); BUN (Urea Nitrogen) 19 mg/dL (8.4-25.7); Bilirubin, Total 0.7 mg/dL (0.2-1.2); Calc. Creatinine Clearance 137 mL/min (70-130); Calcium 7.9 mg/dL (7.8-10.44); Carbon Dioxide 26 mmol/L (23-31); Chloride 107 mmol/L (98-107); Estimated GFR-MDRD Greater than 90; Globulin 2.7 g/dL (2.4-3.5); Glucose 118 mg/dL (80-115); Protein, Total 5.6 g/dL (5.8-8.1); Sodium 138 mmol/L (136-145)
[2020-03-03] MEDS: Dexamethasone 4 MG TAB PO SCH (08:01)
[2020-03-03] MEDS: Ascorbic Acid 500 mg Chewable Tablet PO SCH (08:02)
[2020-03-03] MEDS: Cholecalciferol 1,000 UNITS (25 MCG) TAB PO SCH (08:02)
[2020-03-03] MEDS: Gabapentin 300 MG CAP PO SCH (08:02)
[2020-03-03] MEDS: Zinc Sulfate 220 MG CAP PO SCH (08:02)
[2020-03-03] MEDS: Aspirin 325 MG TAB PO SCH (08:02)
[2020-03-03] MEDS: Enoxaparin Sodium 40 MG/0.4 ML SYRINGE SC SCH (08:02)
[2020-03-03] MEDS: Loratadine 10 MG TAB PO SCH (08:02)
[2020-03-03 12:21] VITALS: BP 107/69; TEMP 98
--- NOTE | 2020-03-05 06:33 | PQF ---
CLINICAL DOCUMENTATION CLARIFICATION FORM: Dear : Vincenzo Solano Date / Time: 03/05/2020 06:31 Please exercise your independent, professional judgment in responding to the clarification form. Clinical indicators are provided on the bottom of this form for your review Please check appropriate box(es): [x ] Sepsis due to Covid19 [ ] Localized infection without sepsis [ ] Other diagnosis [ ] Unable to determine In addition, please specify: Present on Admission (POA): [x ] Yes [ ] No [ ] Unable to determine Physician Signature: Date/Time: For continuity of documentation, please document condition throughout progress notes and discharge summary. Thank You. To be completed by CDI/Coding staff for physician review: Present Clinical Indicators - Signs / Symptoms / Labs Results and Location in Medical Record [X] Scattered multifocal areas of patchy groundglass opacity with linear patchy parenchymal densities at each lung base Chest Xray 02/24 [X] patient is a covid19 positive HP 02/24 [X] acute hypoxemic respiratory failure due to Covid19 PNA PN 03/04 [X] Vital Signs: Pihi=204.8 Pqdtu=809 Respi=20 WE=491/70 - Vital Signs 02/24 Vital Signs 02/24 [X] Labs WBC: 02/24=7.4 03/02=9.9 03/03=10.1 -Labs 02/24 Labs / Present Risk Factors Results and Location in Medical Record [X] 64 years old male ED Notes 02/24 [X] GERD ED Notes 02/24 [X] COVID19 HP 02/24 [X] Viral PNA HP 02/24 [X] Obesity PN 03/04 Present Treatments Results and Location in Medical Record [X] Chest Xray Collected 02/24 [X] Oxygen via NC HP 02/24 [X] Azithromycin 500mg Oral MAR 02/24 [employer]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
--- NOTE | 2020-03-05 06:34 | DIS ---
DATE OF ADMISSION: 02/25/2020 DATE OF DISCHARGE: 03/03/2020 PRIMARY CARE PROVIDER: Jose Antonio Moseley MD DISCHARGE DIAGNOSES: 1. Acute hypoxic respiratory failure. 2. Coronavirus disease-19 pneumonia. CONDITION OF PATIENT ON THE DAY OF DISCHARGE: Stable. I assessed Mr. Garcia on the day of discharge. He denies any chest pain or shortness of breath. Vital signs are stable. S1 and S2 are heard, regular. Lungs are clear to auscultation bilaterally. CONSULTATIONS DURING THIS HOSPITALIZATION: Dr. Leon. Post-acute care followup with primary care provider in 1 week. ACTIVITY: As tolerated. DIET: Heart healthy. DISCHARGE MEDICATIONS: He has been started on, 1. Proventil HFA 2 puffs every 6 hours as needed. 2. Vitamin C 1000 mg daily for 10 days. 3. Vitamin D 3000 units daily for 10 days. 4. Dexamethasone 6 mg daily for 3 days. 5. Zinc sulfate 220 mg daily for 10 days. His home medications are resumed and include, 1. Aspirin 325 mg daily. 2. Cetirizine 10 mg daily. 3. Gabapentin 300 mg at bedtime. 4. Protonix 40 mg every other day. 5. Flomax 0.4 mg at bedtime. 6. Lipitor 40 mg in the evening. HOSPITAL COURSE: Mr. Garcia is a pleasant 64-year-old gentleman who was admitted to [facility] on February 25, 2020, for acute hypoxic respiratory failure secondary to COVID-19 pneumonia. He was seen by Infectious Disease Service. He received remdesivir. He also received dexamethasone. He improved clinically, but was still needing supplemental oxygen. Arrangements were made for home oxygen and the patient is being discharged home in stable condition. Many thanks for allowing me to participate in your patient's care. Please feel free to contact me with any questions or concerns. On the day of discharge, he has sodium 138, potassium 4.0, creatinine 0.79, white count 10,100, hemoglobin 12.7, and platelet count 317,000. Inflammatory markers improved during this hospitalization, including ferritin, C-reactive protein. D-dimer also stabilized. DISCHARGE DESTINATION: Home. TIME SPENT: Total amount of time spent coordinating this discharge: 32 minutes. Job ID: [id number]
--- NOTE | 2020-03-06 16:29 | EKG ---
Test Reason : SOB Blood Pressure : / mmHG Vent. Rate : 087 BPM Atrial Rate : 087 BPM P-R Int : 142 ms QRS Dur : 136 ms QT Int : 416 ms P-R-T Axes : 016 063 011 degrees QTc Int : 500 ms Normal sinus rhythm Left atrial enlargement Right bundle branch block Abnormal ECG Confirmed by TATIANA AKHTAR, ERICKA Herrera ([id number]), assignment editor JONNA TA ([id number]) on 03/06/2020 4:28:57 PM Referred By: DOREEN Confirmed By:ERICKA SIMPSON MD
== END 2020-03-03 15:50 | disposition home or self-care (01) | DRG 871 ==
LOC: ERS 13:40 → 2SW 16:56
PROVIDERS: ADMIT Internal Medicine; ATTEND Internal Medicine
PROC: 8E0ZXY6 Isolation (ICD-10-PCS; principal; 2020-02-25)
DX: A41.89 Other specified sepsis (principal); U07.1 COVID-19; J12.89 Other viral pneumonia; J96.01 Acute respiratory failure with hypoxia; K21.9 Gastro-esophageal reflux disease without esophagitis; I10 Essential (primary) hypertension; E78.5 Hyperlipidemia, unspecified; Z96.659 Presence of unspecified artificial knee joint; G62.9 Polyneuropathy, unspecified; E66.9 Obesity, unspecified; N40.0 Benign prostatic hyperplasia without lower urinary tract symptoms; Z86.73 Personal history of transient ischemic attack (TIA), and cerebral infarction without residual deficits; Z79.51 Long term (current) use of inhaled steroids; Z79.899 Other long term (current) drug therapy; Z90.49 Acquired absence of other specified parts of digestive tract; Z98.49 Cataract extraction status, unspecified eye; Z68.33 Body mass index [BMI] 33.0-33.9, adult
CPT/HCPCS: 36415; 71045; 71275; 80048; 80053; 80076; 82550; 82728; 82805; 83880; 84484; 85025; 85379; 86140; 93005; 94760; 96365; 96375; J0456; J1650; J2930; J8540; Q9967

== ENCOUNTER 2023-02-03 07:33 | Outpatient (CLI) | payer OTHER | END 2023-02-03 07:34 | disposition home or self-care (01) | LOC: BICMRI 07:33 | PROVIDERS: ATTEND Nurse Practitioner Family | DX: M48.061 Spinal stenosis, lumbar region without neurogenic claudication (principal); M47.816 Spondylosis without myelopathy or radiculopathy, lumbar region | CPT/HCPCS: 72148 ==

== ENCOUNTER 2023-02-09 14:38 | Outpatient (CLI) | payer OTHER | END 2023-02-09 14:39 | disposition home or self-care (01) | LOC: RAD 14:38 | PROVIDERS: ATTEND Specialist | DX: M47.816 Spondylosis without myelopathy or radiculopathy, lumbar region (principal) | CPT/HCPCS: 72120 ==

== ENCOUNTER 2023-10-26 16:00 | Outpatient (CLI) | payer OTHER | END 2023-10-26 16:01 | disposition home or self-care (01) | LOC: SLEEPLAB 16:00 | PROVIDERS: ATTEND Internal Medicine Cardiovascular Disease | DX: G47.33 Obstructive sleep apnea (adult) (pediatric) (principal); R53.83 Other fatigue; F41.9 Anxiety disorder, unspecified; I63.9 Cerebral infarction, unspecified; R09.02 Hypoxemia | CPT/HCPCS: 95800 ==